=== PATIENT | male | born 1935 | race Caucasian/White ===

== ENCOUNTER 2020-12-24 17:10 | Emergency (ER) | payer OTHER, SELFPAY ==
[2020-12-24] VITALS (7 sets, daily range): BP systolic 123–140; BP diastolic 69–87; PULSE 61–97; RESP 16–27; TEMP 36.6; O2SAT 90–99; BMI 15.2
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
[2020-12-24 18:14] LABS: Basophils % 0.2 %; Eosinophils % 0.3 %; Hematocrit 33.5 % (42.0-52.0); Lymphocytes # 0.8 10^3/uL (0.8-4.8); Lymphocytes % 12.6 %; Mean Corpuscular HGB Conc 32.8 g/dL (30.0-36.0); Mean Corpuscular Hemoglobin 31.6 pg (28.0-34.0); Mean Corpuscular Volume 96.3 fL (80-94); Mean Platelet Volume 9.1 fL (7.4-10.4); Monocytes # 0.5 10^3/uL (0.2-0.9); Neutrophils # 5.25 10^3/uL (1.8-7.7); Neutrophils % 79.6 %; Nucleated Red Blood Cells % 0 %; Platelet Count 146 10^3/cmm (130-400); Red Blood Count 3.48 10^6/uL (4.1-5.3); Red Cell Distribution Width 17.9 % (12.1-15.1); White Blood Count 6.6 10^3/uL (4.0-10.0)
[2020-12-24] MEDS: iodixanol 320 mg/mL 100mL Btl IV (18:20)
[2020-12-24 18:37] LABS: Alanine Aminotransferase 11 U/L (0-41); Albumin Level 3.9 g/dL (3.5-5.2); Alkaline Phosphatase 104 IU/L (40-130); Anion Gap 11.5 (5-19); Aspartate Amino Transferase 21 U/L (0-40); Blood Urea Nitrogen 26 mg/dL (8-23); Calcium 8.4 mg/dL (8.5-10.5); Carbon Dioxide 26 mmol/L (22-29); Chloride 104 mmol/L (98-107); Globulin 3.1 g/dL (1.3-4.6); Glucose 102 mg/dL (65-115); Osmolality Calculated 289 mOsm/kg (285-295); Potassium 4.5 mmol/L (3.5-5.1); Sodium 137 mmol/L (136-145); Total Bilirubin 0.3 mg/dL (0.15-1.2)
[2020-12-24 19:06] LABS: Add Urine Microscopic? YES; Bilirubin Urine Neg (Negative); Blood Urine 2+ (Negative); Glucose Urine UA Norm (Normal); Ketones Urine Negative (Negative); Leukocyte Esterase Urine Negative (Negative); Nitrate Urine Negative (Negative); Protein Urine Neg (Negative); Urine Appearance Clear (CLEAR); Urine Color Yellow (Yellow); Urobilinogen Urine Norm (Negative); pH Urine 5 (5-7)
[2020-12-24 19:07] LABS: Add Urine Culture? No; Bacteria Urine TRACE /hpf; RBC Urine 0-4 /hpf (0-2)
== END 2020-12-24 20:38 | disposition home or self-care (01) ==
PROVIDERS: Emergency Provider Student in an Organized Health Care Education/Training Program; Family Provider Internal Medicine; PCP Internal Medicine
DX: S06.0X0A Concussion without loss of consciousness, initial encounter (principal); W22.10XA Striking against or struck by unspecified automobile airbag, initial encounter; V89.2XXA Person injured in unspecified motor-vehicle accident, traffic, initial encounter
CPT/HCPCS: 70450; 71045; 71260; 72125; 72170; 74177; 80053; 81001; 85025; 99284; Q9967

== ENCOUNTER 2021-01-03 11:01 | Outpatient (CLI) | payer OTHER, SELFPAY ==
--- NOTE | 2021-01-03 11:16 | FL_ITS ---
WS: [id number] Modified barium swallow, 01/03/2021 Clinical Data: Other dysphagia Comparison: None. Fluoroscopy time: 2.1 minutes. Findings: The patient had good bolus propulsion in the oral phase. There was no penetration or aspiration. Ther e is mild weakness in pharyngeal propulsion with piriform sinus pooling. However the pooling did ama [email or web address] FL/FL barium swallow modifd [id number] Impression: Minimal pharyngeal propulsion weakness with piriform sinus pooling which cleare d.
--- NOTE | 2021-01-03 12:12 | CT_ITS ---
WS: [id number] CT HEAD TECHNIQUE: Noncontrast CT of the head obtained from the skullbase to the vertex. CLINICAL INFORMATION: TIA COMPARISON: CT December 24, 2020 DLP: 958.[address] scans at [facility] use at least one of these dose optimization techniques: automat ed exposure control; mA and/or kV adjustment per patient size (includes targeted exams where dose is matched to clinical indication); or iterative reconstruction. FINDINGS: No evidence of intracranial hemorrhage or mass effect. Ventricular system and basal cisterns are das nt. Mild small vessel changes with moderate parenchymal volume loss. No extra-axial fluid collections . No evidence of mass or mass effect. Normal wynn-white differentiation. Paranasal sinuses and mastoid air cells are well aerated. .Normal visualized soft tissues. CT/CT head wo con* [id number] IMPRESSION: 1. No evidence of intracranial hemorrhage or mass effect. 2. Mild small vessel changes. Moderate parenchymal volume loss. 3. No acute intracranial findings.
== END 2021-01-03 11:02 | disposition home or self-care (01) ==
LOC: RAD 11:05
PROVIDERS: Family Provider Internal Medicine; PCP Internal Medicine; Visit Provider Family Medicine
DX: R13.19 Other dysphagia (principal); G45.9 Transient cerebral ischemic attack, unspecified
CPT/HCPCS: 70450; 74230; 92611

== ENCOUNTER 2021-02-05 10:42 | Outpatient (CLI) | payer OTHER, SELFPAY ==
--- NOTE | 2021-02-05 10:51 | USCV_ITS ---
AshleyMikhail andrew Age: 85 Gender: M : 1935 Exam Date: 02/05/2021 11:18 Ordering Phys: Camila Hauser MD Technologist: Exam Location[place] [facility] [place]: TIA Risk Factors: Previous Vascular Surgery: Right Brachial BP: / Left Brachial BP: / Right Left Velocity (cm/s) Spectral Plaque Velocity (cm/s) Spectral Plaque Syst/Diast Broadening Syst/Diast Broadening 56.45/ 11.85 Prox CCA 62.60 / 16.10 49.05/ 10.20 Mid CCA 43.40 / 7.40 48.60/ 13.20 Distal CCA 45.90 / 7.40 33.50/ 15.50 Prox ICA 27.40 / 7.70 51.50/ 17.35 Mid ICA 62.00 / 14.90 57.10/ 14.55 Distal ICA 62.60 / 19.20 69.85 ECA 58.30 1.23 ICA/CCA 1.00 Antegrade Vertebral Antegrade 39.40/ 10.85 cm/s 32.90/ 9.90 cm/s Bi Subclavian Bi 44.05 FINDINGS Comparison: none available. No significant elevation of systolic or diastolic velocities. Waveforms are normal. No significant amount of calcified plaque or intimal thickening identified. CONCLUSIONS Normal carotid doppler ultrasound. Dr. Rossy Carmen DO (Electronically Signed) Final Date: 06 February 2021 09:21 S
== END 2021-02-05 10:43 | disposition home or self-care (01) ==
PROVIDERS: PCP Family Medicine; Visit Provider Family Medicine
DX: G45.9 Transient cerebral ischemic attack, unspecified (principal)
CPT/HCPCS: 93880

== ENCOUNTER 2021-04-15 12:35 | Emergency (ER) | payer OTHER, MEDICARE, SELFPAY ==
[2021-04-15 13:00] VITALS: BP 114/76; PULSE 89; RESP 18; TEMP 36.6; O2SAT 97; BMI 20.3
[2021-04-15 13:31] VITALS: BP 119/89; PULSE 94; RESP 18; O2SAT 99
--- NOTE | 2021-04-15 13:43 | CT_ITS ---
WS: [id number] CT CHEST, ABDOMEN AND PELVIS WITH IV CONTRAST. HISTORY: Weight loss. TECHNIQUE: Contiguous 5 mm axial imaging performed through the chest, abdomen and pelvis with IV cont rast, oral contrast has been provided. Coronal and sagittal reformats chest. Coronal and sagittal ref ormats through the abdomen and pelvis. All CT scans at [facility] use at least one of these d ose optimization techniques: automated exposure control; mA and/or kV adjustment per patient size (in cludes targeted exams where dose is matched to clinical indication); or iterative reconstruction. CONTRAST: Visipaque 320; 75 mL IV. DLP: 1044.45 mGy.cm COMPARISON: 12/24/[address]: Large lobulated soft tissue mass centered in the LEFT upper lobe has increased in size sinc e 12/24/2020. Mass now measures 5.0 x 5.3 cm and extends over a length of 5.1 cm. This mass now exten ds through the superior major fissure. No additional nodules. Chronic emphysema. Small mediastinal an d hilar lymph nodes. No size criteria for adenopathy. Mild atherosclerosis aorta. Normal size pulmona ry artery. No pleural or pericardial effusion. Abdomen CT: Multiple small hypodense lesions within the liver. The largest is along the anterior LEFT lobe measuring 2.7 cm. This is been present on prior studies and may be a cyst. No bile duct dilatat ion. There are a few other scattered hypodensities which are too small to characterize. Normal size s pleen. Cholelithiasis without acute cholecystitis. Moderate atrophy of the pancreas. Normal adrenal g lands. Cysts and parapelvic cyst RIGHT kidney with cortical thinning. Dilatation of the RIGHT renal pelvis a nd RIGHT ureter. Marked dilatation and tortuosity of the ureter. There is a change in caliber and inc reased soft tissue density in the distal RIGHT ureter near the pelvic brim. There is a filling defect within the ureter. Soft tissue mass within the ureter extends over length of 2.5 cm. Ureter distal t o this soft tissue mass is normal. Additional parapelvic cyst LEFT kidney with mild cortical thinning . No obstruction. Moderate atherosclerosis aorta. No ascites. No adenopathy. Pelvic CT: No free fluid. Extensive diverticular disease and constipation. No acute diverticulitis. N o adenopathy. Bones are markedly osteopenic. No osteoblastic or osteolytic bone disease. Extensive laminectomy defe cts with fusion in the lower lumbar spine. CT/CT chest abd pel w con* IMPRESSION: 1. Large mass centered in the LEFT upper lobe has increased in size since 12/24. Lung mass measures 5.0 x 5.3 cm and extends over length of 5.1 cm. Mass now extends through the superior fissure into the LEFT lower lobe. Neoplasm unt il proven otherwise. 2. No mediastinal or hilar adenopathy. 3. Severe RIGHT hydroureteronephrosis secondary to a soft tissue mass in the m id to distal RIGHT ureter extending over a length of 2.5 cm. 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 4. Marked constipation and diverticular disease. 5. Multiple hypodense lesions in the liver. No change since 12/24/2014. 6. Cholelithiasis without acute cholecystitis.
--- NOTE | 2021-04-15 13:43 | CT_ITS ---
WS: [id number] CT NECK WITH CONTRAST HISTORY: Weight loss, history of cancer. TECHNIQUE: Contiguous 5 mm axial images are performed through the neck with intravenous contrast. Sag ittal and coronal reformats are also submitted. All CT scans at [facility] use at least one o f these dose optimization techniques: automated exposure control; mA and/or kV adjustment per patient size (includes targeted exams where dose is matched to clinical indication); or iterative reconstruc tion. CONTRAST: CONTRAST: Visipaque 320; 75 mL IV. DLP: 389.23 mGy.cm COMPARISON: 09/20/2018 Study is significantly limited by motion artifact. Patient swallowed with a malignant the examination . No and the hypopharynx, larynx or subglottic region. Limited evaluation due to motion artifact. No ad enopathy. Thyroid is normal. Extensive anterior cervical fusion hardware from C3 to C6. Osteopenia. On the [employer] localizer there is a lobulated soft tissue mass in the central LEFT lung measuring 4.[address]/CT neck w con* 13923 IMPRESSION: 1. Quality of this examination is limited due to swallowing artifact. 2. No significant mass or adenopathy within the neck. 3. Central LEFT lung mass measures 4.1 x 4.[address] report for ches t, abdomen and pelvis performed on the same day.
--- NOTE | 2021-04-15 13:45 | FL_ITS ---
WS: [id number] ESOPHAGRAM WITH FLUOROSCOPY HISTORY: Difficulty swallowing. Cancer patient. Prior radiation. COMPARISON: None available. FLUOROSCOPY TIME: 0.7 minutes. Esophagus and swallowing function: Limited evaluation of the esophagus with Gastrografin. Patient was able to swallow the Gastrografin mixture without too much difficulty. There is laryngeal penetration but no aspiration. The Gastrografin was swallowed without regurgitation. This study was limited due to patient's condition. FL/FL barium swallow 25569 IMPRESSION: 1. Patient was able to swallow the Gastrografin mixture without difficulty. 2. Laryngeal penetration but no aspiration.
--- NOTE | 2021-04-15 13:49 | ED_ITS ---
HPI - General Adult General: Chief complaint: General Medical Stated complaint: CANT TALK OR EAT Time Seen by Provider: 04/15/21 13:14 History of Present Illness: HPI narrative: Patient is a 85-year-old male with history of throat cancer diagnosed earlier this year who completed radiation treatment in January presenting to the emergency room with worsening dysphagia x3- month. Patient says that he has had progressive dysphagia to the point where he has difficulty swallowing liquids currently. He says that things get stuck in his throat and he vomits is resolved. Patient also has chronic abdominal pain. Patient denies any nausea/vomiting outside of eating, fever/chills, diarrhea, melena/hematochezia, or other issues. She has never had a G-tube placed in the past. Patient wants to schedule care with Dr. Ashby but has been unable to do so in the past few month. Onset: chronic Duration:ongoing Location:home Severity:moderate Review of Systems Narrative: Constitutional: No fever, no chills. HEENT: No vision changes, +dysphagia CV: No chest pain, no palpitations PULM: no cough, no dyspnea. GI: No abdominal pain, no N/V/D. : No dysuria MSKEL: No muscle pain SKIN: No new rashes, no lesions. NEURO: No headache, no focal weakness. HEME: No visible bruises PSYCH: Normal mood Physical Exam Narrative: EXAM NARRATIVE: Head: Atraumatic Eyes: PERRL, conjunctiva without injection ENT: Mucous membrane moist, no oropharyngeal involvement, no tongue protrusion or drooling NECK: Supple, ROM intact, +moderate anterior neck swelling LUNGS: LCTAB, no crackles/rhonchi CV: RRR ABDOMEN: Soft, nontender in all quadrants EXTREMITY: Normal ROM SKIN: No rash or erythema NEURO: Awake and alert, no focal motor deficits PSYCH: Normal mood and affect Course Vital Signs: Vital signs: Vital Signs Temperature 97.9 F 04/15/21 13:00 Pulse Rate 94 04/15/21 15:37 Respiratory Rate 18 04/15/21 13:31 Blood Pressure 117/88 04/15/21 15:37 Pulse Oximetry 98 04/15/21 15:37 MDM - General Adult MDM Narrative: Medical decision making narrative: Patient is a 85-year-old male with history of throat cancer off treatments who presents the emergency room for evaluation of worsening dysphagia. On exam, patient is thin looking male hemodynamically stable, no other focal complaints at this time. Given concerns for progressive dysphagia, I have consulted Dr. Nickerson agreed to see patient in clinic on for evaluation of G-tube placement. In addition, I discussed case with Dr. Ashby who will see patient in clinic on Wednesday. Findings of lung cancer and kidney cancer discussed extensively with patient and his . Patient agrees with follow up with Dr. Ashby to discuss cancer treatment further. Disposition: Discharge. He is given strict return precaution for any concerning complaints. Patient has 2 appointments in the next 3 days. Lab Data: Labs: Lab Results 04/15/21 04/15/21 04/15/21 Range/Units 13:45 13:45 13:45 WBC 6.7 (4.0-10.0) 10^3/ uL RBC 4.28 (4.1-5.3) 10^6/u L Hgb 12.2 (11.7-16.6) g/dL Hct 37.7 L (42.0-52.0) % MCV 88.1 (80-94) fl MCH 28.5 (28.0-34.0) pg MCHC 32.4 (30.0-36.0) g/dL RDW 13.8 (12.1-15.1) % Plt Count 216 (130-400) 10^3/c mm MPV 9.8 (7.4-10.4) fL Neut % (Auto) 70.6 % Lymph % (Auto) 17.4 % Upton % (Auto) 9.9 % Eos % (Auto) 1.2 % Baso % (Auto) 0.6 % Neut # (Auto) 4.69 (1.8-7.7) 10^3/u L Lymph # (Auto) 1.2 (0.8-4.8) 10^3/u L Upton # (Auto) 0.7 (0.2-0.9) 10^3/u L Eos # (Auto) 0.1 (0.0-0.8) 10^3/u L Baso # (Auto) 0.0 (0.0-0.1) 10^3/u L Nucleated RBC % (a uto) 0 % Nucleated RBCs # 0.0 /100WBC PT 14.00 (12.1-14.9) SECO NDS INR 1.05 (0.8-1.2) APTT 38.5 H (23.9-36.7) SECO NDS Sodium 136 (136-145) mmol/L Potassium 4.8 (3.5-5.1) mmol/L Chloride 102 (98-107) mmol/L Carbon Dioxide 25 (22-29) mmol/L Anion Gap 13.8 (5-19) BUN 27 H (8-23) mg/dL Creatinine 1.2 (0.7-1.2) mg/dL GFR Calculation Not Reportable Glucose 92 (65-115) mg/dL Calculated Osmolal ity 287 (285-295) mOsm/k g Calcium 8.6 (8.5-10.5) mg/dL Total Bilirubin 0.4 (0.15-1.2) mg/dL AST 14 (0-40) U/L ALT 8 (0-41) U/L Alkaline Phosphata se 108 (40-130) IU/L Total Protein 6.8 (6.6-8.7) g/dL Albumin 3.8 (3.5-5.2) g/dL Globulin 3.0 (1.3-4.6) g/dL Lipase 43 (13-60) U/L Blood Type Rho(D) Type Antibody Screen 04/15/21 Range/Units 14:07 WBC (4.0-10.0) 10^3/ uL RBC (4.1-5.3) 10^6/u L Hgb (11.7-16.6) g/dL Hct (42.0-52.0) % MCV (80-94) fl MCH (28.0-34.0) pg MCHC (30.0-36.0) g/dL RDW (12.1-15.1) % Plt Count (130-400) 10^3/c mm MPV (7.4-10.4) fL Neut % (Auto) % Lymph % (Auto) % Upton % (Auto) % Eos % (Auto) % Baso % (Auto) % Neut # (Auto) (1.8-7.7) 10^3/u L Lymph # (Auto) (0.8-4.8) 10^3/u L Upton # (Auto) (0.2-0.9) 10^3/u L Eos # (Auto) (0.0-0.8) 10^3/u L Baso # (Auto) (0.0-0.1) 10^3/u L Nucleated RBC % (a uto) % Nucleated RBCs # /100WBC PT (12.1-14.9) SECO NDS INR (0.8-1.2) APTT (23.9-36.7) SECO NDS Sodium (136-145) mmol/L Potassium (3.5-5.1) mmol/L Chloride (98-107) mmol/L Carbon Dioxide (22-29) mmol/L Anion Gap (5-19) BUN (8-23) mg/dL Creatinine (0.7-1.2) mg/dL GFR Calculation Glucose (65-115) mg/dL Calculated Osmolal ity (285-295) mOsm/k g Calcium (8.5-10.5) mg/dL Total Bilirubin (0.15-1.2) mg/dL AST (0-40) U/L ALT (0-41) U/L Alkaline Phosphata se (40-130) IU/L Total Protein (6.6-8.7) g/dL Albumin (3.5-5.2) g/dL Globulin (1.3-4.6) g/dL Lipase (13-60) U/L Blood Type AB Positive Rho(D) Type Positive Antibody Screen Negative Imaging Data^: Other Imaging: Radiologist's impression: [address] [id number] Scan ReportSigned Patient: Mikhail Huerta #: [id number]: [id number]#:[id number]/Sex: 85 / MADM Date: 04/15/21Loc: ERRoom/Bed:Attending Dr: Ordering Provider/Ordering MD: Larisa Arnett MD Date of Service: 04/15/21 Procedure(s): CT neck w con* [id number] Accession Number(s): [id number] Report Number: [id number] WS: [id number] CT NECK WITH CONTRAST HISTORY: Weight loss, history of cancer. TECHNIQUE: Contiguous 5 mm axial images are performed through the neck with intravenous contrast. Sagittal and coronal reformats are also submitted. All CT scans at [facility] use at least one of these dose optimization techniques: automated exposure control; mA and/or kV adjustment per patient size (includes targeted exams where dose is matched to clinical indication); or iterative reconstruction. CONTRAST: CONTRAST: Visipaque 320; 75 mL IV. DLP: 389.23 mGy.cm COMPARISON: 09/20/2018 Study is significantly limited by motion artifact. Patient swallowed with a malignant the examination. No and the hypopharynx, larynx or subglottic region. Limited evaluation due to motion artifact. No adenopathy. Thyroid is normal. Extensive anterior cervical fusion hardware from C3 to C6. Osteopenia. On the cold header localizer there is a lobulated soft tissue mass in the central LEFT lung measuring 4.[address]/CT neck w con* [id number] IMPRESSION: 1. Quality of this examination is limited due to swallowing artifact. 2. No significant mass or adenopathy within the neck. 3. Central LEFT lung mass measures 4.1 x 4.[address] report for chest, abdomen and pelvis performed on the same day. Dictated By:Rossy Carmen DOSigned By:Rossy Carmen DOSigned Date/Time:04/15/21 1501DD/ 1456 [facility] [place] [id number] Scan ReportSigned Patient: Mikhail Huerta #: [id number]: [id number]#:[id number]/Sex: 85 / MADM Date: 04/15/21Loc: ERRoom/Bed:Attending Dr: Ordering Provider/Ordering MD: Larisa Arnett MD Date of Service: 04/15/21 Procedure(s): CT chest abd pel w con* Accession Number(s): [id number] Report Number: [id number] WS: [id number] CT CHEST, ABDOMEN AND PELVIS WITH IV CONTRAST. HISTORY: Weight loss. TECHNIQUE: Contiguous 5 mm axial imaging performed through the chest, abdomen and pelvis with IV contrast, oral contrast has been provided. Coronal and sagittal reformats chest. Coronal and sagittal reformats through the abdomen and pelvis. All CT scans at [facility] use at least one of these dose optimization techniques: automated exposure control; mA and/or kV adjustment per patient size (includes targeted exams where dose is matched to clinical indication); or iterative reconstruction. CONTRAST: Visipaque 320; 75 mL IV. DLP: 1044.45 mGy.cm COMPARISON: 12/24/[address]: Large lobulated soft tissue mass centered in the LEFT upper lobe has increased in size since 12/24/2020. Mass now measures 5.0 x 5.3 cm and extends over a length of 5.1 cm. This mass now extends through the superior major fissure. No additional nodules. Chronic emphysema. Small mediastinal and hilar lymph nodes. No size criteria for adenopathy. Mild atherosclerosis aorta. Normal size pulmonary artery. No pleural or pericardial effusion. Abdomen CT: Multiple small hypodense lesions within the liver. The largest is along the anterior LEFT lobe measuring 2.7 cm. This is been present on prior studies and may be a cyst. No bile duct dilatation. There are a few other scattered hypodensities which are too small to characterize. Normal size spleen. Cholelithiasis without acute cholecystitis. Moderate atrophy of the pancreas. Normal adrenal glands. Cysts and parapelvic cyst RIGHT kidney with cortical thinning. Dilatation of the RIGHT renal pelvis and RIGHT ureter. Marked dilatation and tortuosity of the ureter. There is a change in caliber and increased soft tissue density in the distal RIGHT ureter near the pelvic brim. There is a filling defect within the ureter. Soft tissue mass within the ureter extends over length of 2.5 cm. Ureter distal to this soft tissue mass is normal. Additional parapelvic cyst LEFT kidney with mild cortical thinning. No obstruction. Moderate atherosclerosis aorta. No ascites. No adenopathy. Pelvic CT: No free fluid. Extensive diverticular disease and constipation. No acute diverticulitis. No adenopathy. Bones are markedly osteopenic. No osteoblastic or osteolytic bone disease. Extensive laminectomy defects with fusion in the lower lumbar spine. CT/CT chest abd pel w con* IMPRESSION: 1. Large mass centered in the LEFT upper lobe has increased in size since 12/24/2020. Lung mass measures 5.0 x 5.3 cm and extends over length of 5.1 cm. Mass now extends through the superior fissure into the LEFT lower lobe. Neoplasm until proven otherwise. 2. No mediastinal or hilar adenopathy. 3. Severe RIGHT hydroureteronephrosis secondary to a soft tissue mass in the mid to distal RIGHT ureter extending over a length of 2.5 cm. 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 4. Marked constipation and diverticular disease. 5. Multiple hypodense lesions in the liver. No change since 12/24/2014. 6. Cholelithiasis without acute cholecystitis. Discharge Plan Discharge Patient Disposition: Home Clinical Impression: Dysphagia, Throat cancer Condition: Stable Prescriptions: No Action Unable to Assess RF: 0 Discharge Orders: Discharge ED (Routine); Ordered 04/15/21 Ordered By: Larisa Arnett Referrals: Amor Tesfaye MD [Physician] - 04/17/21 3:25 pm Camila Hauser MD [Primary Care Provider] - Tim Ashby MD [Hospitalist] - 04/18/21 10:00 am Discharge Diet: Advance as tolerated Discharge Activity: Resume usual activity Patient Instructions: Dysphagia Activity Restrictions/Additional Instructions: Our outsole caser will have you follow-up with Dr. Nickerson and Dr. Ashby in the next few days. You would be expected to have a phone call with our outsole caser who will put you on the schedule. You have an appointment with Dr. Nickerson on . Come back to the ED if you have any other concerns or issues. Coding Level of Care Code ED Architecture Internship for Senthil Catherine
[2021-04-15 13:52] LABS: Basophils % 0.6 %; Eosinophils # 0.1 10^3/uL (0.0-0.8); Eosinophils % 1.2 %; Hematocrit 37.7 % (42.0-52.0); Hemoglobin 12.2 g/dL (11.7-16.6); Lymphocytes # 1.2 10^3/uL (0.8-4.8); Lymphocytes % 17.4 %; Mean Corpuscular HGB Conc 32.4 g/dL (30.0-36.0); Mean Corpuscular Hemoglobin 28.5 pg (28.0-34.0); Mean Corpuscular Volume 88.1 fl (80-94); Mean Platelet Volume 9.8 fL (7.4-10.4); Monocytes # 0.7 10^3/uL (0.2-0.9); Monocytes % 9.9 %; Neutrophils # 4.69 10^3/uL (1.8-7.7); Neutrophils % 70.6 %; Nucleated Red Blood Cells % 0 %; Platelet Count 216 10^3/cmm (130-400); Red Blood Count 4.28 10^6/uL (4.1-5.3); Red Cell Distribution Width 13.8 % (12.1-15.1); White Blood Count 6.7 10^3/uL (4.0-10.0)
--- NOTE | 2021-04-15 13:56 | DCPLANNER ---
manager wireless was asked to schedule a follow up appointment for patient with Dr. Bourgeois and Dr. Ashby. manager wireless spoke with Amber with Dr. Ashby, a follow up appointment was scheduled for Wednesday, April 18 at 10:[address] Ashby. manager wireless called [facility], spoke with Mane, a follow up appointment was scheduled for April at 3:25. manager wireless will email Josefa at [facility] to let her know of the referral and appointment. manager wireless also informed the ED physician of the scheduled appointments. manager wireless informed patient of the scheduled appointments.
[2021-04-15 14:18] LABS: INR 1.05 (0.8-1.2)
[2021-04-15 14:19] LABS: Partial Thromboplastin Time 38.5 SECONDS (23.9-36.7)
[2021-04-15 14:23] LABS: Alanine Aminotransferase 8 U/L (0-41); Albumin Level 3.8 g/dL (3.5-5.2); Alkaline Phosphatase 108 IU/L (40-130); Anion Gap 13.8 (5-19); Aspartate Amino Transferase 14 U/L (0-40); Blood Urea Nitrogen 27 mg/dL (8-23); Calcium 8.6 mg/dL (8.5-10.5); Carbon Dioxide 25 mmol/L (22-29); Chloride 102 mmol/L (98-107); Glucose 92 mg/dL (65-115); Lipase 43 U/L (13-60); Osmolality Calculated 287 mOsm/kg (285-295); Potassium 4.8 mmol/L (3.5-5.1); Sodium 136 mmol/L (136-145); Total Bilirubin 0.4 mg/dL (0.15-1.2); Total Protein 6.8 g/dL (6.6-8.7)
[2021-04-15] MEDS: diatrizoate meglumine 120 mL Sol PO (14:35)
[2021-04-15] MEDS: iodixanol 320 mg/mL 100mL Btl IV ×2 (14:51→14:52)
[2021-04-15 15:37] VITALS: BP 117/88; PULSE 94; O2SAT 98
--- NOTE | 2021-04-24 08:18 | DCPLANNER ---
Patient had a follow up appointment scheduled for 04.18.[address] Ashby at [facility] - patient did attend appointment. Patient had a follow up appointment scheduled for 04.17.[address] Tesfaye at [facility] - patient did attend appointment.
== END 2021-04-15 15:35 | disposition home or self-care (01) ==
PROVIDERS: Emergency Provider Emergency Medicine; PCP Family Medicine
DX: R13.10 Dysphagia, unspecified (principal); C14.0 Malignant neoplasm of pharynx, unspecified
CPT/HCPCS: 70491; 71260; 74177; 74220; 80053; 83690; 85025; 85610; 85730; 86850; 86900; 99283; Q9963; Q9967

== ENCOUNTER 2021-04-18 10:05 | Outpatient (CLI) | payer OTHER, MEDICARE, SELFPAY ==
--- NOTE | 2021-04-18 14:38 | ONC CON_ITS ---
Dr. Ashby New Patient Note Patient: Mikhail Huerta Unit #: [id number]: 1935 Dicatated By: Tim Ashby M.D.Date of Visit: Apr 18, 2021 Onc MED New Patient/Consult Referring Physician: Dr. HOLLAND GONGORA JR., Carla Gongora Chief Complaint: Laryngeal cancer/lung mass. History of Present Illness: This is a patient with known history of laryngeal cancer. He also is known to have an enlarging left lung mass. In August [address] Srivastava with complaints of hoarseness and difficulty swallowing. 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 Biopsy showed moderate to severe dysplasia. Neck CT on 09/20/2018 showed no evidence of mass or lymphadenopathy, but chest CT at that time showed a new pulmonary nodule in the left upper lobe measuring 1.6 x 1.4 cm. He was referred to a newspaper delivery counselor for evaluation. Bronchoscopy apparently was nondiagnostic. In the course of an orthopedic procedure in October 2018 he was noted to have abnormal vocal cords. On 12/18/2018 he underwent bronchoscopy, esophagoscopy, and direct laryngoscopy's. 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 PET/CT on 01/07/2019 showed an FDG avid left upper lobe mass measuring 2.3 x 1.8 cm, suspicious for primary lung malignancy. There were no other areas of abnormal uptake. He then underwent definitive radiation to the larynx, completed on 03/24/2019 to a total dose of 6300 cGy administered in 28 fractions. His indicates that sometime following completion of the radiation he developed significant memory loss and cognitive dysfunction. In her words he lost it all , but it did show some gradual recovery. During follow-up there was evidence of continued enlargement of the left upper lobe lung mass. The records indicate that on multiple occasions he had failed to show up for scheduled biopsies. On 04/15/2020 when he presented to the emergency room with difficulty swallowing. He complained that things got stuck in his throat and that he was vomiting up everything he was eating. His evaluation concluded a barium swallow study which interestingly showed that he was able to swallow the Gastrografin mixture without too much difficulty. There was noted to be laryngeal penetration but no aspiration. The Gastrografin was swallowed without regurgitation. His neck CT showed no significant mass or adenopathy. CT scans of the chest, abdomen, and pelvis showed further enlargement of the left upper lobe lung nodule measuring 5.0 x 5.3 x 5.1 cm. There was no mediastinal or hilar adenopathy. There was noted to be severe hydronephrosis secondary to soft tissue mass in the mid to distal right ureter extending over a length of 2.5 cm. Multiple hypodense lesions in the liver were noted to be unchanged compared to her previous study from 12/24/2014. His main complaint is that his throat is plugged up and that he cannot swallow. He claims to regurgitate everything he tries to swallow except water. In his words I need to get this opened up . He claims to have a total weight loss of 130 pounds. By our records he is down 35 pounds since September 2018. He does not have fever or night sweats. He has some mucus sinus drainage and he complains that he does not have a voice. He does not have much cough. His breathing has been okay. He has been having pain in the left lateral chest area and across the lower chest. He does not complain of nausea. He is on medication for acid reflux. He has been having abdominal pain in the left upper quadrant area and in the low mid abdominal area. Bowel function has been adequate. He has urinary frequency and nocturia. For the past 3 weeks he has been having burning with urination and he has had blood in the urine every time he voids. He does not have significant joint or bone pain, but he does complain of having muscle cramps. He also complains that he has numbness all over. He does not complain of headache. He does report being dizzy at times. He has a history of posttraumatic stress disorder, and he has some anxiety and depression. Past Medical History: His medical history consists of anxiety, atrial fibrillation, chronic obstructive pulmonary disease, depression, gastroesophageal reflux disease, laryngeal cancer, memory loss/cognitive dysfunction, peripheral neuropathy, and posttraumatic stress disorder. Past Surgical History: He underwent bronchoscopy, esophagoscopy, and direct laryngoscopy in 2019. His other surgical/procedural history includes bilateral cataract excisions, cervical fusion, left inguinal hernia repair, low back surgery x 2, rotator cuff repair bilaterally, and colonoscopy in 2018. Medications: Boost 1 bottle(s) Liquid Oral b.i.d., Docusate Sodium 2 Capsule (of 100 mg) Oral b.i.d., Donepezil HCl 1 Tablet (of 10 mg) Oral at bedtime, Fluticasone Propionate Suspension Nasal daily, HYDROcodone-Acetaminophen 1 Tablet (of 7.5-325 mg) Oral q 8 hours PRN, Meclizine HCl 0.5 Tablet (of 25 mg) Oral t.i.d., Metoprolol Tartrate 0.5 Tablet (of 100 mg) Oral b.i.d., Pantoprazole Sodium 2 Tablet (of 40 mg) Pack Oral b.i.d., Saline Nasal [place] Solution Nasal daily, traZODone HCl 1 (100 mg) Tablet Oral at bedtime Allergies: Gabapentin, Kenalog, Omeprazole, and Topamax. Social History: Mr. Huerta is and he is retired. He has a history of smoking 1 pack of cigarettes daily, though he quit smoking 46 years ago. He does not drink alcohol. Family History: He reports that both parents of old age, father at age 87 and mother at age 91. He had a total of 9 siblings. One brother is still living and has dementia. The others are , but he does not really know what happened to them. Review Of Symptoms: Constitutional - He has weakness/fatigue, but he is doing some work at home. He has limited oral intake. He has had a total weight loss of 130 lbs. He does not have fever or night sweats. ECOG score is 1, Eyes - No change in vision, ENMT - He has hearing loss. No tinnitus. He has sinus drainage and he complains that his throat is plugged and he cannot swallow. He regurgitates anything he tries to eat or drink other than water, Hematologic/Lymphatic - He has easy bruising, Respiratory - His breathing is okay. He does have some cough with the mucus drainage. He complains that he does not have a voice. No pleuritic pain or hemoptysis, Cardiovascular - He has been having some pain in the left lateral chest area and across his lower chest, Gastrointestinal - He does not complain of nausea. He is on medication for acid reflux. He has abdominal pain in the left upper quadrant area and in the lower abdomen. No diarrhea or constipation. No blood in the stool or black stools, Genitourinary (M) - He has urinary frequency and nocturia. For the past 3 weeks he has been having burning with urination and he has blood in the urine every time he voids, Musculoskeletal - He has no significant joint or bone pain, but recently has been having muscle cramps, Neurologic - No headache. He sometimes has dizziness. He has numbness/tingling all over, Psychiatric - He has anxiety and depression. He is not sleeping well. Vital Signs: Performed on Apr 18, 2021 11:09: 4, 18.30, 1.80 sq.m, 72.00 in, 99 %, 97 /min, 17 /min, 116/73 mm(hg), 97.7 F (LOW), and 134.9 lbs (LOW). Physical Examination: Constitutional - He appears chronically ill, Eyes - Sclerae nonicteric. Conjunctivae clear, ENMT - No lesions noted in the oral cavity, Neck - There is just mild induration in the neck. There is no mass or thyromegaly noted, Hematologic/Lymphatic - No cervical, clavicular, or axillary adenopathy, Respiratory - Lungs sound clear with diminished air movement bilaterally, Cardiovascular - Heart rhythm is irregular. There is no murmur, gallop, or rub noted, Abdomen - Soft. There is significant tenderness in the lower abdomen overlying the symphysis. Liver and spleen are not enlarged. There is no abdominal mass or ascites noted and there is no inguinal adenopathy, Back/Spine - There is no bony tenderness in the spine, Extremities - No edema. Pedal pulses are palpable bilaterally, Integumentary - No rashes. No suspicious skin lesions noted, Neurologic - No focal neurologic deficits noted. Lab/Imaging: Laboratory studies from 04/15/2021 included CBC showing hemoglobin 12.2 g, white blood cell count 6700, and platelet count 216,000. Comprehensive metabolic profile showed borderline renal function with BUN 27 and creatinine 1.2 mg/dL. Bilirubin and liver enzymes were normal. Albumin is in the low normal range at 3.8 g/dL. Problem List: 1. Enlarging left upper lobe lung mass consistent with primary lung neoplasm. 2. CT evidence of right ureteral mass with associated hydronephrosis, consistent with primary urothelial cancer. 3. 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 He completed definitive radiation in March 2019. 4. He has subjective complaints of dysphagia and regurgitation. The cause is uncertain, as there was no supportive evidence on a recent barium swallow study. 5. GERD. 6. COPD. 7. Atrial fibrillation. 8. Degenerative disease of the spine. 9. Memory loss/cognitive dysfunction. 10. Posttraumatic stress disorder. 11. Anxiety and depression. Problems Addressed with this Encounter and Plan: 1. Patient with enlarging left upper lobe lung mass consistent with primary lung neoplasm. Management is likely to be problematic given his other ongoing issues. However, the mass does appear to be accessible by bronchoscopy, and I will arrange for referral to Dr. Aquino, subject to [facility] approval. 2. He has CT evidence of right ureteral mass and associated right hydronephrosis. He is symptomatic with hematuria, and he almost certainly has primary urothelial cancer. I will arrange for referral to Dr. Graham, also subject to [facility] approval. 3. Has a history of having undergone definitive radiation for carcinoma in situ involving both right and left true vocal cords. Radiation was completed in March 2019. During follow-up there has been no evidence of recurrence. He has complaints of difficulty swallowing and regurgitation. The exact cause of this is unclear, as his recent barium swallow study so that he was able to swallow the Gastrografin mixture without difficulty. Nonetheless, he has had significant weight loss, and it still may be appropriate to place a PEG tube for nutritional support. Signed By: Tim Ashby M.D. <<Signature on File>>
== END 2021-04-18 10:06 | disposition home or self-care (01) ==
LOC: ONCMED 10:11
PROVIDERS: PCP Family Medicine; Visit Provider Internal Medicine Medical Oncology
DX: C34.12 Malignant neoplasm of upper lobe, left bronchus or lung (principal); R19.00 Intra-abdominal and pelvic swelling, mass and lump, unspecified site; N13.30 Unspecified hydronephrosis; R13.10 Dysphagia, unspecified; R11.10 Vomiting, unspecified; K21.9 Gastro-esophageal reflux disease without esophagitis; J44.9 Chronic obstructive pulmonary disease, unspecified; I48.91 Unspecified atrial fibrillation; M47.9 Spondylosis, unspecified; R41.3 Other amnesia; F43.10 Post-traumatic stress disorder, unspecified; F41.9 Anxiety disorder, unspecified; F32.9 Major depressive disorder, single episode, unspecified; Z79.899 Other long term (current) drug therapy; Z85.21 Personal history of malignant neoplasm of larynx
CPT/HCPCS: 99205

== ENCOUNTER 2021-04-30 11:01 | Outpatient (CLI) | payer OTHER, SELFPAY ==
--- NOTE | 2021-04-30 11:30 | FL_ITS ---
WS: [id number] Exam: FL barium swallow modifd 53488 Date/Time of Exam: 04/30/2021 11:13 AM Reason For Exam: R13.10 - Dysphagia, unspecified Fluoroscopy time: 4.6 minutes Preliminary survey shows operative fusion of the C-spine from C3 to C6 with anterior plate and screw fixation. The exam was performed in conjunction with the speech therapy service. The patient experienced some difficulty initiating the swallowing process at the level of the orophar ynx with elevation of the tongue to the hard palate. There was pooling into the vallecula involving a ll consistencies of barium mixture foodstuffs. The patient experienced penetration into the laryngeal inlet when ingesting thin liquid barium. The patient demonstrated mild aspiration when ingesting [place] id very mixture foodstuffs. The patient ingested the barium pill without incident. FL/FL barium swallow modifd 72017 IMPRESSION: 1. The patient experienced mild aspiration when ingesting solid barium mixture foodstuffs. 2. Penetration into the laryngeal inlet was noted when the patient ingested thi n liquid barium solutions. 3. Chronic pooling of all consistencies of barium mixture foodstuffs into the v allecula. The patient experienced some difficulty initiating the swallowing pro cess at the level of the oropharynx with elevation of the tongue the hard palat e. A separate report of findings and recommendations will be provided with the [facility] therapy service.
== END 2021-04-30 11:02 | disposition home or self-care (01) ==
LOC: RAD 11:05
PROVIDERS: PCP Family Medicine; Visit Provider Surgery
DX: R13.10 Dysphagia, unspecified (principal)
CPT/HCPCS: 74230; 92611

== ENCOUNTER → 2021-05-16 13:39 | Outpatient (BNVA) | payer OTHER, SELFPAY | PROVIDERS: PCP Family Medicine; Visit Provider Urology | DX: Z20.822 Contact with and (suspected) exposure to COVID-19 (principal); N28.89 Other specified disorders of kidney and ureter | CPT/HCPCS: 81003; 87635 ==

== ENCOUNTER 2021-05-22 21:15 | Observation (INO) | payer OTHER, SELFPAY ==
[2021-05-21 14:10] VITALS: BMI 18.3
[2021-05-22] VITALS (21 sets, daily range): BP systolic 86–130; BP diastolic 53–88; PULSE 96–169; RESP 14–27; TEMP 36.4–37.3; O2SAT 92–100
--- NOTE | 2021-05-22 | SCC_ITS ---
Procedure Done: 1. Cystoscopy with right retrograde ureteropyelogram 2. Right ureteroscopy with biopsy of ureteral mass, no stent 104.5 seconds of fluoroscopic guidance, for a cumulative dose of 11.95 mGy, was provided to Dr. Graham by the radiology department. C-arm images of the abdomen were saved for the patient's permanent record. [facility]
--- NOTE | 2021-05-22 | CT_ITS ---
Guided Bronchoscopy Planning CT images; total exam DLP: 921.16 mGy-cm MTDD
--- NOTE | 2021-05-22 10:50 | SC_ITS ---
WS: [id number] C-arm fluoroscopy for cystoscopy and right ureteroscopy, 05/22/2021 Clinical Data: Right ureteroscopy Comparison: None. Findings: Dr. Graham attempted a right ureteroscopy. SC/C-arm FL for Urology Impression: Right ureteroscopy.
[2021-05-22] MEDS: sodium chloride 0.9% 1,000 ML 30 ML IV (11:24)
--- NOTE | 2021-05-22 12:43 | P.ANESASSM_ITS ---
Pre-Anesthetic Assessment Pre-Anesthetic Assessment: Height/Weight: Height 1.83 m Weight 61.235 kg Temp Pulse Resp BP Pulse Ox 97.5 F L 96 18 123/88 97 05/22/21 11:15 05/22/21 11:15 05/22/21 11:15 05/22/21 11:15 05/22/21 11:15 Preop Diagnosis: Left lung mass Proposed Procedure: Operation Date: 05/22/21 14:00 Proposed Procedures p Cystoscopy 99704 [id number] N28.89(Not Applicable) - Cordell Graham MD s Retrograde Pyelogram(Right) - MD catalina Landry Ureteroscopy biopsy(Right) - MD catalina Landry Ureteral Stent Placement(Right) - Cordell Graham MD s Veran(Not Applicable) - Maris Aquino MD Was Beta Sudhir taken within 24 hours: Yes Was Clonidine taken within 24 hours: N/A Last intake: Intake Last Liquid Date 05/22/21 Last Liquid Time 06:00 Last Solid Date 05/21/21 Last Solid Time 21:00 Social: Social History: No alcohol and No tobacco Exam: Pre-Anes Outpt Exam: alert, oriented x 3 and clear to auscultation bilaterally Additional Exam Findings (including area of procedure): Irregular Airway: Submandibular: WNL Cervical ROM: WNL MP: 2 Dentition: Partials Additional comments: H/O head/neck radiation but good mobility of so ft tissue Pulmonary: Comments: Lung mass CV/HEM: CV/HEM: Afib and HTN : : Chronic renal Insufficiency GI: GI: GERD Musc/skel: Musc/skel: Weakness Anesthetic Plan: ASA status: 3 Anesthesia: General Risk of > 500 ml blood loss (7ml/kg in children): No Meds/Allergies Current Medications: Current Medications Generic Name Dose Route Start Last Admin Trade Name Freq PRN Reason Stop Dose Admin Sodium Chloride 1,000 mls @ 30 ml s/hr 05/22/21 11:00 05/22/21 11:24 Sodium Chloride 0.9% IV 05/23/21 10:59 30 mls/hr .Q24H FRANKY Administration PFSH Anesthesia PFSH: Medical History Hydronephrosis Ureteral mass Surgical History History of bilateral cataract extraction History of hernia surgery 2X History of surgery on wrist Family History Father , AT 86 of unknown cause Mother , AT 85 of unknown cause Social History Smoking and tobacco status: former smoker Alcohol intake: former Marital status: Current occupational status: retired History of recent travel: No Data Anesthesia Cardiac Studies: No Data to Display
--- NOTE | 2021-05-22 14:15 | P.HPUD_ITS ---
Surgery/Procedure H&P Update DATE OF PROCEDURE: May 22, 2021 DATE H&P PERFORMED: 05/15/21 H&P UPDATE INFORMATION: I have reviewed H&P completed within last 30 days, I have examined patient prior to procedure, No changes to prior documentation and H&P is in [facility] EMR on date indicated PREOP DIAGNOSIS: Right ureteral obstruction PLANNED PROCEDURE: Operation Date: 05/22/21 14:00 Proposed Procedures p Cystoscopy 03024 [id number] 51143 N28.89(Not Applicable) - Cordell Graham MD s Retrograde Pyelogram(Right) - MD catalina Landry Ureteroscopy biopsy(Right) - MD catalina Landry Ureteral Stent Placement(Right) - MD catalina Landry Veran(Not Applicable) - Maris Aquino MD
[2021-05-22] MEDS: fentaNYL 50 mcg/mL INJ 2mL IVP (14:17)
--- NOTE | 2021-05-22 14:29 | W.PM.OPSUD ---
Surgery/Procedure H&P Update DATE OF PROCEDURE: May 22, 2021 DATE H&P PERFORMED: 05/19/21 H&P UPDATE INFORMATION: I have reviewed H&P completed within last 30 days, I have examined patient prior to procedure and No changes to prior documentation PREOP DIAGNOSIS: Left lung mass PLANNED PROCEDURE: Bronchoscopy with inspection of the airway, possible endobronchial biopsy, navigational bronchoscopy guided transbronchial biopsy, fine-needle aspiration, endobronchial sound guided transbronchial aspiration of lymph nodes and control of bleeding. Operation Date: 05/22/21 14:00 Proposed Procedures p Cystoscopy 72460 [id number] N28.89(Not Applicable) - Cordell Graham MD s Retrograde Pyelogram(Right) - MD catalina Landry Ureteroscopy biopsy(Right) - MD catalina Landry Ureteral Stent Placement(Right) - MD catalina Landry Veran(Not Applicable) - Maris Aquino MD
[2021-05-22] MEDS: levofloxacin-dextrose 5 % 500 MG/100 ML PREMIX 100 MG IV (14:40)
--- NOTE | 2021-05-22 15:07 | PC.NURSE ---
omnipaque 300 mgI/ml lot#[id number] exp [id number] 10ml right ureter
--- NOTE | 2021-05-22 15:41 | PM.OP ---
Operative Report Date of procedure: May 22, 2021 Pre-op Diagnosis: Right ureteral mass Post-op Diagnosis: 1. 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 Tight ureteral obstruction impassable with guidewire Procedure Done: 1. Cystoscopy with right retrograde ureteropyelogram 2. Right ureteroscopy with biopsy of ureteral mass, no stent Implants: None Specimens removed/disposition: 3 small biopsies of the suspicious mucosa identified at the distal end of the mass Pathology: Ureteral biopsiesX3 Surgeon: Gladys Anesthesia: General Estimated blood loss: Minimal Urine output: Not measured Complications: None. Findings: 1. Tight ureteral obstruction with inability to visualize the ureter proximal to the right ureteral mass and also inability to advance a guidewire. 2. Suspicious mucosa with papillary changes at the distal end of the area of the right ureteral mass seen on CT scan. Could not pass anything through the true lumen. 3 small biopsies obtained with ureteral biopsy forceps Disposition: other (Turned over to Dr. Aquino for pulmonary portion) Brief History: Mr. Huerta is a very pleasant 85-year-old white male who was recently referred to ne for evaluation of right ureteral obstruction. 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 There appeared to be a soft tissue mass just distal to the area where the bifurcated ureter joined together. The ureter distal to that appeared to be normal. He was admitted for cystoscopy, retrograde, ureteroscopy, biopsy and possible stent. Dr. Aquino the market asset protection manager was to follow with bronchoscopy. Procedure: After routine preoperative evaluation examination and obtaining of informed consent he was taken to the operating suite on 05/22/2021 where general anesthesia was administered without difficulty after appropriate timeout was performed, SCDs confirmed to be functioning, preoperative antibiotics administered, beta-amada protocol confirmed. Prepped and draped in usual sterile fashion in dorsolithotomy position paying careful attention to avoiding pressure points. 21 Latvian cystoscope with 30 degree lens was easily advanced into the bladder and the bladder was carefully inspected with both 30 and 70 degree lenses. Prostate was mildly enlarged. Bladder was otherwise normal. There was some typical trabeculation cellule formation but no papillary lesions. Orifices were normal. An 8 Latvian cone-tip catheter was intubated to the right ureteral orifice for a right retrograde ureteropyelogram which showed only a very small segment of the right distal ureter filling with contrast with a blunt cut off approximately 2 cm above the ureteral orifice. No contrast could be forced proximal to that point. A flexible tip guidewire was then advanced up the right ureter but only to that same spot and could not be manipulated. An open-ended ureteral catheter was advanced over the guidewire with the same result. A zip wire was then attempted to be passed through the open ureteral catheter but with the same result. A 7 Latvian offset semirigid ureteroscope was then advanced up the right ureter to effectively the same point and the true lumen could not be clearly identified beyond that point but there was notable difference in the mucosa with papillary changes suspicious for TCCA. Biopsy forceps were then utilized for 3 biopsies of this suspicious mucosa. There was minimal bleeding. At this point the procedure was completed simply because no further access to the ureter above the obstructive mass could be obtained as described above. The bladder was drained with an 18 Latvian Crisostomo catheter. He tolerated procedure well without complications and was turned over to Dr. Aquino and his staff for his scheduled procedure.
[2021-05-22] MEDS: lidocaine 1% INJ 20 mL XX (16:00)
--- NOTE | 2021-05-22 16:44 | SUR.OPER ---
Mass noted outside of airway. Ultrasound guided fine needle aspiration of left lung mass performed using sterile technique per Dr. Aquino. Left underarm area prepped with chloraprep, draped with sterile drapes, and mass aspirated with 18 gauge needle. Sample placed in formalin.
--- NOTE | 2021-05-22 17:45 | PM.OP ---
Operative Report Date of procedure: May 22, 2021 Pre-op Diagnosis: Left lung mass Post-op diagnosis: same Brief History: This is an 85-year-old gentleman with left upper lobe lung mass coming in for bronchoscopic evaluation. Procedure: Name of the procedure: Bronchoscopy with inspection of the airway, navigational bronchoscopy guided fine needle aspiration of left upper lobe lung mass, endobronchial ultrasound-guided transbronchial needle aspiration of lymph nodes and control of bleeding. Indication: Left upper lobe lung mass Anesthesia: General anesthesia. Local anesthesia: The vocal cords, trachea, kofi in the right and left mainstem bronchi were anesthetized with 1% lidocaine, 7 mL. Description of the procedure: The procedure was explained to the patient and the consent was obtained. The patient was brought to the OR. The patient underwent laryngeal mask airway placement for general anesthesia for the urologic procedure. Following induction of general anesthesia, the bronchoscope was advanced through the LMA. The vocal cords are normal. The vocal cords were anesthetized 1% lidocaine, 3 mL. The upper and lower trachea appeared to normal. The kofi was sharp. The kofi, the right and left mainstem bronchi are anesthetized with 1% lidocaine. In a systematic manner bilateral bronchial tree was then examined. The bronchoscope was advanced into the left mainstem bronchus. The left upper lobe, lingula and left lower lobe bronchi were examined up to the third subsegmental level and no abnormalities were identified. The bronchoscope was then introduced into the right mainstem bronchus. The right upper lobe, right middle lobe and right lower lobe bronchi were examined up to the third subsegmental level and no abnormalities were identified. There was mucus throughout the airways. Using navigational bronchoscopy fine-needle aspiration of the left upper lobe lung mass was performed. Multiple samples were obtained. The endobronchial ultrasound was introduced through the ET tube. Mediastinal and hilar lymphadenopathy was identified with the ultrasound. The fine-needle aspiration was performed from station seven and 10 L. Samples: 1. Navigational bronchoscopy guided fine-needle aspiration was sent for histopathology. 2. The transbronchial needle aspiration of the aforementioned lymph node groups were sent for histopathology. Complications: There was no immediate complications. Chest x-ray: Pending
--- NOTE | 2021-05-22 17:53 | XRR_ITS ---
PROCEDURE INFORMATION: Exam: XR Chest Exam date and time: 05/22/2021 5:53 PM Age: 85 years old Clinical indication: Shortness of breath; Prior surgery; Surgery date: Post-operative (0-2 days); Surgery type: Bronchoscopy on 05/22/2021. ; Patient HX: SOB. Onset of afib with rvr while in or recovery S/P bronchoscopy and cystoscopy on . ; Additional info: Bronch/veran/ebus, pacu TECHNIQUE: Imaging protocol: XR of the chest. Views: 1 view. COMPARISON: CT chest abd pel w con* 04/15/2021 2:39 PM FINDINGS: Lungs: 6 cm left upper lobe lung mass. The lungs are hyperinflated, consistent with COPD. No consolidative pulmonary infiltrate noted. Pleural spaces: No postprocedure pneumothorax demonstrated. No pleural effusion demonstrated. Heart/Mediastinum: No cardiomegaly. Bones/joints: Degenerative spine changes are noted. XR/XR chest 1V portable [id number] IMPRESSION: 1. 6 cm left upper lobe lung mass. 2. The lungs are hyperinflated, consistent with COPD. No consolidative pulmonary infiltrate noted. 3. No postprocedure pneumothorax demonstrated. Radiation Dose CTDIVOL = (mGy): DLP = (mGy-cm)
[2021-05-22] MEDS: phenazopyridine 100 mg Tablet 200 MG PO (19:10)
--- NOTE | 2021-05-22 19:11 | PM.MISC ---
Miscellaneous Note Purpose of Documentation: Update changing care plan Note: Did well through the surgery. Postoperative assessment showed rapid ventricular response to his chronic atrial fibrillation. There was enough concern regarding his overall debilitated state that discharge home would be potentially risky given that finding and therefore request for observation admission was made. Hospitalist service has been consulted for medical management. Anticipate discharge home tomorrow. Reviewed with his . Patient also has a history of PTSD and has a lot of difficulty in hospitals without his present. She has been given permission to spend the night to help facilitate his behavioral comfort and avoid confrontational combative behavior that he has demonstrated in the past.
--- NOTE | 2021-05-22 19:14 | ANE.PACU2 ---
Inpatient post-anesthesia follow up: Airway intact: Yes Vital signs: Temperature 97.7 F Pulse Rate 141 Respiratory Rate 16 Blood Pressure 96/53 Pulse Oximetry 94 Oxygen Delivery Me thod Nasal Cannula Oxygen Flow Rate 4 Fraction of Inspir ed Oxygen Hydration adequate: Yes Nausea and vomiting: No Pain level: 3 Mental status: Altered (Post op delirium) Additional Comments: Dickson/DELROY, consulted Hospitalist for admit
--- NOTE | 2021-05-22 20:19 | SUR.PHASEI ---
PT C/O PAIN FROM CATHETER
--- NOTE | 2021-05-22 20:21 | SUR.PHASEI ---
PT HAS LOOSE MOLAR, R. LOWER
[2021-05-22 20:37] LABS: Basophils % 0.1 %; Eosinophils % 0.1 %; Hematocrit 37.3 % (42.0-52.0); Hemoglobin 11.7 g/dL (11.7-16.6); Lymphocytes # 0.3 10^3/uL (0.8-4.8); Mean Corpuscular HGB Conc 31.4 g/dL (30.0-36.0); Mean Corpuscular Hemoglobin 28.1 pg (28.0-34.0); Mean Corpuscular Volume 89.7 fl (80-94); Mean Platelet Volume 10.2 fL (7.4-10.4); Monocytes # 0.1 10^3/uL (0.2-0.9); Monocytes % 0.9 %; Neutrophils # 8.35 10^3/uL (1.8-7.7); Neutrophils % 95.4 %; Nucleated Red Blood Cells % 0 %; Platelet Count 188 10^3/cmm (130-400); Red Blood Count 4.16 10^6/uL (4.1-5.3); Red Cell Distribution Width 13.9 % (12.1-15.1); White Blood Count 8.8 10^3/uL (4.0-10.0)
--- NOTE | 2021-05-22 21:32 | PC.NURSE ---
Admit Note Patient admitted to CSU room 112-2 from PACU via stretcher. Covering service notified. Patient presents with afib with rvr. Heart rate 153 on admission currently 100 at this time. Med rec completed. Informed Dr Knapp of patient's arrival. Doctor informed this RN that Dr Ellsworth would see this patient for further orders. Orders reviewed & will continue to monitor. Patient and/or pharmaceutical sales representative oriented to environment, equipment, and informed of the following as found in the admission booklet: patient rights & responsibilities, visitor policy, hand and respiratory hygiene practice. Other education includes: home medications and muro catheter . Patient and both verbalized understanding.
--- NOTE | 2021-05-22 22:03 | P.CONIM_ITS ---
Providers/Reason For Consult Consulting Physician/Specialty*: Sarah Beth Ellsworth MD/Hospitalist Reason for Consult*: A fib with RVR Attending Physician: Cordell Graham MD Primary Care Provider: Camila Hauser MD History of Present Illness History of Present Illness Mikhail Huerta is a 85 year old male noted to have left upper lung mass in 04/2021 and also right ureteral mass suspicious for TCCA. He underwent scheduled cystoscopy with right retrograde ureteropyelogram with biopsy of mass and bronchoscopy with FNA of lung mass and mediastinal LAD. In recovery room, patient was noted to develop A fib with RVR and therefore discharge was deferred and he is instead admitted to the hospital for observation. Peak HR noted at 169, with associated hypotension BP 86/70 . By the time of my assessment in CSU, HR is currently at 107 bpm, BP 110/72. patient denies any current chest pain, dyspnea, palpitations. He has missed his daily dose of metoprolol XL 50mg BID today. Per records review patient has a PMH of A fib, not currently on any anticoagulation. He denies any current symptoms except discomfort due to Crisostomo catheter. There is noted to be hematuria without current blood clots. Review of Systems General: Reports: 10 or more systems reviewed and unremarkable except in HPI and below Const: Denies: fever(s), chills or body aches Eyes: Denies: change in vision, blurry vision or photophobia ENMT: Reports: hoarseness; Denies: throat pain, enlarged tonsils, odynophagia or nasal congestion Card: Denies: chest pain, palpitations, irregular heart rhythm, edema, swelling of feet/ankles, lightheadedness, pre-syncope, dyspnea on exertion or orthopnea Resp: Denies: dyspnea, productive cough, non-productive cough, wheezing, stridor, pain on inspiration, change in phlegm color, hemoptysis or chest congestion GI: Denies: abdominal pain, nausea, vomiting, hematemesis, coffee ground emesis, dysphagia, heartburn, diarrhea, constipation, GI cramping, change in stool character, hematochezia or melena : Denies: flank pain, dysuria, urinary frequency, urinary urgency, urinary hesitancy or hematuria Musc: Denies: neck pain, back pain, extremity pain, joint swelling, joint warmth or deformity Neuro: Denies: headache(s), numbness in extremities, weakness in extremities, sensory changes, difficulty walking, frequent falls, dizziness, vertigo, behavioral changes, Slurred speech present or seizure-like activity Psych: Denies: anxiety, depression, suicidal ideation or homicidal ideation Endo: Denies: polyuria, polydipsia, tired all the time, cold intolerance or hot flashes Parth/Lymph: Denies: easy bruising or easy bleeding Meds/Allergies Home Medications and Allergies Home Medications Medication Instructions Recorded Confirmed Last Taken Type amitriptyline 25 mg tablet 25 mg PO BEDTIME 04/24/21 05/22/21 05/21/21 22:00 History donepezil 10 mg tablet 10 mg PO BEDTIME 04/24/21 05/22/21 05/21/21 22:00 History fluticasone propionate 50 1 spray INTRANASAL DAILY 04/24/21 05/22/21 05/21/21 History mcg/actuation nasal spray,suspension metoprolol succinate 100 mg 50 mg PO BID 04/24/21 05/22/21 05/21/21 22:00 History tablet,extended release 24 hr trazodone 100 mg tablet 100 mg PO BEDTIME 04/24/21 05/22/21 05/21/21 22:00 History meclizine 25 mg tablet 12.5 mg PO TID tab 05/19/21 05/22/21 05/21/21 22:00 History pantoprazole 40 mg tablet,delayed 40 mg PO BID tab 05/19/21 05/22/21 05/21/21 22:00 History release hydrocodone-acetaminophen 2 tab PO Q8H PRN 05/22/21 05/22/21 05/21/21 22:00 History Allergies Allergy/AdvReac Type Severity Reaction Status Date / Time No Known Allergies Allergy Verified 05/21/21 14:07 PFSH Acute PFSH: Medical History Hydronephrosis Ureteral mass Surgical History History of bilateral cataract extraction History of hernia surgery 2X History of surgery on wrist Family History Father , AT 86 of unknown cause Mother , AT 85 of unknown cause Social History Smoking and tobacco status: former smoker Alcohol intake: former Marital status: Current occupational status: retired History of recent travel: No Vitals/I&O/Wt Last Vital Signs Temp 98 F 05/22/21 19:35 Pulse 114 H 05/22/21 20:15 Resp 16 05/22/21 20:15 BP 91/70 05/22/21 20:15 Pulse Ox 100 05/22/21 20:15 05/22/21 05/22/21 05/22/21 06:59 14:59 22:59 Intake Total 700 / 700 Output Total 5 / Balance 695 / 695 Weight last 48 hrs Weight 61.235 kg Physical Exam Narrative: EXAM NARRATIVE: General: No acute distress, AO x3 HEENT: PERRLA, pupils bilaterally equal and reactive, pallors not present Chest: Normal vesicular breath sounds, no added sounds, equal good air entry bilaterally CVS: S1-S2 regular, no murmurs, no tachycardia, no gallops, no rubs Abdomen: Soft, nontender, no organomegaly, bowel sounds present Neuro: No focal deficits, B/L LE with muscular atrophy, usual per , moves all extremities in bed. Urinary Catheter Management^: Crisostomo: Cath Placed During This Visit: yes Urinary Catheter Date of Insertion: 05/22/21 Urinary Catheter Time of Insertion: 15:45 A&P Assessment and plan (1) Atrial fibrillation: A fib with RVR perioperatively likely related to missing Beta blockers today and stress of surgery Currently HR better controlled, between 100-110 mmhg, hypotension resolved once HR under control Resume home dose of metoprolol 50mg BID starting now. Plan to monitor on telemetry overnight, further orders based ib response to po metoprolol. Stat 12 lead EKG No current c/o chest pain, palpitation or dyspnea. CXR taken post procedure, requested radiology read to r/o small left pneumothorax. Currently on 2lpm supplemental 02. clinically euvolemic. Status: Acute Consult Attestations Medical Necessity Statement: observation on telemetry for above care, per admitting Coding Level of Care Code Acute Pipe Smoking Machine Operator for [facility] Diagnoses Atrial fibrillation I48.91
[2021-05-22] MEDS: metoprolol succinate ER (24 HR) 50 mg Tablet PO (22:14)
[2021-05-22] MEDS: trazodone 100 mg Tablet PO (22:14)
[2021-05-22] MEDS: meclizine 25 mg tablet PO (22:15)
[2021-05-22 22:19] LABS: Anion Gap 17.5 (5-19); Blood Urea Nitrogen 15 mg/dL (8-23); Calcium 8.7 mg/dL (8.5-10.5); Carbon Dioxide 20 mmol/L (22-29); Chloride 102 mmol/L (98-107); Glucose 167 mg/dL (65-115); NT Pro B Type Natriuretic Pept 2150 pg/mL (0-450); Osmolality Calculated 285 mOsm/kg (285-295); Potassium 4.5 mmol/L (3.5-5.1); Sodium 135 mmol/L (136-145)
[2021-05-22 22:30] LABS: INR 1.08 (0.8-1.2)
--- NOTE | 2021-05-22 22:56 | ECG_ITS ---
[facility] Test Date: 2021-05-22 Pat Name: Mikhail Huerta Department: Room: 112 Gender: Male Personnel Placement Specialist: : [id number] Requested By: Sarah Beth Ellsworth Order Number: [id number] Blanche MD: Bi Beckford M.D. Measurements Intervals [place] Rate: 97 P: AL: QRS: -4 QRSD: 77 T: 84 QT: 369 QTc: 469 Interpretive Statements ATRIAL FIBRILLATION NONSPECIFIC T-WAVE ABNORMALITY ABNORMAL RHYTHM ECG Compared to ECG 08/25/2018 10:02:07 T-wave abnormality now present Electronically Signed On 05-23-2021 22:46:11 CDT by Bi Beckford M.D. [id number]
[2021-05-23] VITALS (19 sets, daily range): BP systolic 88–105; BP diastolic 53–70; PULSE 79–102; RESP 18; TEMP 36–36.7; O2SAT 90–99
--- NOTE | 2021-05-23 03:05 | PC.NURSE ---
Shift Note Frequent safety and comfort rounds continue. Orders and/or nursing care completed as indicated. Patient monitored for response to intervention and treatment(s). Education provided includes medications with side effects, fall safety, muro with muro care, S/S to report. Patient and/or civil rights representative verbalized understanding of education, patient needed repeated education due to confusion with hx dementia. Muro patient and draining with hematuria without blood clots. No complaints of pain with irritation of muor catheter. Will continue to monitor.
--- NOTE | 2021-05-23 07:30 | PC.NURSE ---
Pt is awake oriented to place and person. Denies any pain. He was asking me when to take out his Crisostomo catheter and when he can go home. HR- ranges from 80s to 90s. BP-102/63, 97% on room air. Madalyn at bedside.
[2021-05-23] MEDS: donepezil 5 MG Tablet 10 MG PO (09:49)
[2021-05-23] MEDS: meclizine 25 mg tablet PO (09:49)
[2021-05-23] MEDS: amitriptyline 25 mg Tablet PO (09:49)
[2021-05-23] MEDS: metoprolol succinate ER (24 HR) 50 mg Tablet PO (09:49)
[2021-05-23] MEDS: pantoprazole DR 40 mg Tablet PO (09:49)
--- NOTE | 2021-05-23 11:28 | PM.PN ---
Subjective Subjective: Interval history: Overnight patient has remained stable. Blood pressure and heart rate has remained stable. Today morning examination with at bedside. No new complaints. Crisostomo removed early in the morning today. Patient has passed urine as per the nurse post Crisostomo removal. Vitals/I&O/Wt Last Vital Signs Temp 97.9 F 05/23/21 10:16 Pulse 89 05/23/21 10:16 Resp 16 05/22/21 20:15 BP 105/64 05/23/21 10:16 Pulse Ox 97 05/23/21 10:16 05/22/21 05/23/21 05/23/21 22:59 06:59 14:59 Intake Total 700 / 700 238 / 938 354 / 354 Output Total 455 / 455 600 / 1055 380 / 380 Balance 245 / 245 -362 / -117 -26 / -26 Weight last 48 hrs Weight 61.235 kg Physical Exam Narrative: EXAM NARRATIVE: General: No acute distress, AO x 2-3, mildly confused HEENT: PERRLA, pupils bilaterally equal and reactive, pallors not present Chest: Bilateral bronchial breath sounds, occasional coarse crackles present, equal good air entry bilaterally CVS: S1-S2 irregularly irregular, tachycardia, no gallops, no rubs Abdomen: Soft, nontender, no organomegaly, bowel sounds present Neuro: No focal deficits, B/L LE with muscular atrophy, usual per , moves all extremities in bed. Urinary Catheter Management^: Crisostomo: Cath Placed During This Visit: yes, but has since been removed by the nurse Reason for Continuing Indwelling Catheter: Decision to DC Catheter Urinary Catheter Date of Insertion: 05/22/21 Urinary Catheter Time of Insertion: 15:45 Date Urinary Catheter Removed: 05/23/21 Time Urinary Catheter Discontinued: 08:30 Data : 05/22/21 20:18 05/22/21 20:17 A&P Assessment and plan (1) Atrial fibrillation: A fib with RVR perioperatively likely related to missing Beta blockers today and stress of surgery Rate controlled now. Continue with home dose of metoprolol 50 mg twice daily. Blood pressures stable. Patient is clinically euvolemic. Can discharge from medical point of view on home meds. I will not change any home meds for now. Will advise patient to follow-up with a primary care provider within next 7 to 10 days. Status: Acute Attestations Medical Necessity Statement*: As per primary team Time Spent in Patient Care: Greater than 35 minutes (>than 50% of time spent in counselling and/or direct pt care on unit). Coding Level of Care Code Acute Mechanical Integrity Specialist for [facility] Diagnoses Atrial fibrillation I48.91
--- NOTE | 2021-05-23 12:33 | PC.NURSE ---
Discharge to home Instructed pt and to have a fall prevention for safety. Madalyn stated they have walker and wheelchair. Instructed pt and to rise up slowly from bed and sit for awhile before standing up to prevent from dizziness, to call 911 right away for any worsening of symptoms of shortness of breath, chest pain or discomfort or rapid heart rate. Educated pt on importance of drinking more fluids for hydration, to limit caffeine intake and to call 911 right away for any worsening symptoms of Afib. Pt and verbalizes understanding. stated that pt has an upcoming appointment on [facility].10 at the [facility]. Asked if she has any help at home, she stated she has a daughter that is capable to help them. Pt and are capable to teach back on what meds pt is taking. stated she has BP cuff to measure HR as well. stated she will call ready transportation for their ride.
--- NOTE | 2021-05-23 12:44 | PC.CHAP ---
Pastoral Care Encounter/Spiritual Assessment Type of Contact [] Declined leather dresser visit [] Patient/Family/Request visit [] Outpatient visit [] Follow-up visit [] Physician referral [] Code/Alert [xx] Routine visit [] Staff referral [] Actively dying [] Patient sleeping [] Family support [] [] Out of room [] Palliative care [] [] Receiving care in room [] Pre-surgical visit [] Trauma [] Long length of stay [] ICU visit [] Other: Relational/Emotional Strength [xx] Patient feels connected with others/family/visitors/staff [] Distress [] Loneliness/isolation [] Abandonment Spirituality of Patient [xx] Person of Pauline [] Attends Cheondoism of their Pauline [xx] Believes in Prayer [] Reads Bible or Methodist materials [] There are Spiritual issues to be addressed Audiovisual Tech Interventions [] Prayer [xx] Active listening [xx] Non-anxious presence [] Spiritual/emotional support [] Crisis/trauma care [] Spiritual counseling [] Bereavement support [] Provided bereavement packet [] Provided Bible/devotional materials [] Provided toy/stuffed animal, coloring book to patient or family member [] Provided Communion [] Anointing/Jarbidge [] Salvation [xx] Completed spiritual assessment [] Other: Impact on Illness or Injury [] Angry [] Fearful [] Anxious [] Often cries [] Exhaustion [] Unable to work [] Unable to attend jehovah's witness [] Unable to walk/stand [] Unable to read [] Unable to drive [] Unable to eat/drink [] Unable to sleep [] Unable to be with family [] Patient intubated [] Other: Summary was present. Conversation short and no prayer offered at that time because patient received a phone call from his daughter which was far more important at the time. Patient may be discharged today per 's statement. Time spent with patient 3 minutes
--- NOTE | 2021-06-02 15:15 | P.DS_ITS ---
Discharge Providers Date of Admission: 05/22/21 21:15 Date of Discharge: 05/23/2021 Attending Provider at Admission: Cordell Graham MD Attending Provider at Discharge: Cordell Graham MD Primary Care Provider: Camila Hauser MD Diagnoses at Discharge Discharge Diagnosis (1) Atrial fibrillation: Status: Acute Reason for Visit Reason for Visit: cytoscopy Hospital Course Hospital Course The patient is a debilitated 85-year-old white male with dementia who was dis covered recently to have an obstructed right ureter of unclear etiology. There appeared to be a soft tissue density suspicious for neoplastic process and he was admitted for cystoscopy, retrograde, ureteroscopy, possible biopsy and stent. Intraoperative findings included evidence of an obstructive papillary lesion and biopsy was conducted. Plan was to send him home postoperatively but he developed rapid ventricular response to his chronic atrial fibrillation and for that reason he was admitted overnight for observation. Hospitalist service was consulted for further assessment and management and overall the patient did well and was capable to be discharged the following day. Crisostomo catheter was removed. Discharged at baseline condition. Physical Exam Const: COMMON NORMALS: no acute distress, alert and well nourished GENERAL APPEARANCE: well kempt and well developed OTHER: Frail-appearing HENMT: COMMON NORMALS: normocephalic and atraumatic HEAD & SCALP: normocephalic and atraumatic Eye: COMMON NORMALS: no scleral icterus Neck/C-Spine: COMMON NORMALS: full ROM Resp: COMMON NORMALS: normal respiratory effort EFFORT & INSPECTION: No labored and No Actively coughing GI: COMMON NORMALS: Soft to palpation and no masses PALPATION: Yes Soft to palpation and No Tenderness to palpation present (GI) Neuro: SENSORIUM/ORIENTATION: Yes alert Psych: APPEARANCE: Yes grossly normal and Yes well kempt ATTITUDE: Yes calm Skin: COMMON NORMALS: no jaundice Urinary Catheter Management^: Crisostomo: Cath Placed During This Visit: yes, but has since been removed by the nurse Reason for Continuing Indwelling Catheter: Decision to DC Catheter Urinary Catheter Date of Insertion: 05/22/21 Urinary Catheter Time of Insertion: 15:45 Date Urinary Catheter Removed: 05/23/21 Time Urinary Catheter Discontinued: 08:30 Discharge Data Data Completed and Pending: Completed Studies During Hospitalization Category Date Time Status CT guided broncho scopy 80776 Routin e Cat Scan 05/22/21 11:55 Completed XR chest 1V carl ble [id number] Routine Exams 05/22/21 17:53 Completed Cytology [PTH] Ro utine Pth 05/22/21 16:18 Completed Cytology [PTH] Ro utine Pth 05/22/21 16:57 Completed Pathology: Surgic al [PTH] Routine Pth 05/22/21 17:50 Completed Vitals: Last Vital Signs Temp 98.1 F 05/23/21 12:38 Pulse 93 05/23/21 12:38 Resp 18 05/23/21 12:38 BP 100/65 05/23/21 12:38 Pulse Ox 97 05/23/21 12:38 Discharge Plan Discharge Patient Disposition: Home Condition: Stable Prescriptions: Continued fluticasone propionate 50 mcg/actuation spray,suspension 1 spray intranasal DAILY RF: 0 amitriptyline 25 mg tablet 25 mg PO BEDTIME RF: 0 donepezil 10 mg tablet 10 mg PO BEDTIME RF: 0 metoprolol succinate 100 mg tablet extended release 24 hr 50 mg PO BID RF: 0 trazodone 100 mg tablet 100 mg PO BEDTIME RF: 0 meclizine 25 mg tablet 12.5 mg PO TID RF: 0 pantoprazole 40 mg tablet,delayed release (DR/EC) 40 mg PO BID RF: 0 hydrocodone-acetaminophen 7.5-325 mg Tablet 2 tab PO Q8H PRN (Reason: Pain) RF: 0 No Action docusate sodium 100 mg capsule 200 mg PO BID RF: 0 Discharge Orders: Discharge Order (Routine); Ordered 05/23/21 Ordered By: Cordell Graham Referrals: Cordell Graham MD [Physician] - 05/30/21 11:00 am (Follow-up with Dr. Graham on Wednesday at 11 am for Pathology check. If you have any more concerns or questions or you need to change the schedule, to call his clinic. ) Camila Hauser MD [Primary Care Provider] - (You need to follow up with your PCP at the [facility] in as scheduled. If you have any concerns and need to reschedule please call their clinic.) Discharge Diet: Advance as tolerated Discharge Activity: Increase activity as tolerated Patient Instructions: A-fib (Atrial Fibrillation) (DC), Fall Prevention for Older Adults (DC) Activity Restrictions/Additional Instructions: Urology instructions: 1. The findings intraoperatively confirmed what was seen on the CT scan with evidence of an obstructing mass in the distal ureter on the right. The mass could not be fully identified due to the obstruction and the inability to pass the scope all the way into the depth of the mass but there was distinctly abnormal lining of the ureter at that level as expected and this area was biopsied. 2. The biopsy should be back sometime next week and we will plan on a follow-up at that time. 3. It is likely that he will continue to have some blood in his urine. 4. 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 Sometimes the biopsies which are very small based on the instruments required are not conclusive. 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 Please follow-up with your primary care provider within next 1 week Discharge Attestations Time Spent in Discharge Care*: less than 30 min Quality Metrics Clinical Quality Measures During this hospital stay, did patient experience: None Coding Level of Care Code Acute [facility] CLAUS note Diagnoses Atrial fibrillation I48.91
== END 2021-05-23 12:43 | disposition home or self-care (01) ==
PROVIDERS: Anesthesiology; Internal Medicine Critical Care Medicine; Admitting Provider Urology; PCP Family Medicine; Visit Provider Urology
PROC: 0TJB8ZZ Inspection of Bladder, Via Natural or Artificial Opening Endoscopic (ICD-10-PCS; CPT 52000; principal; 2021-05-22 14:00)
PROC: (CPT 74420; 2021-05-22 14:00)
PROC: 0TJ98ZZ Inspection of Ureter, Via Natural or Artificial Opening Endoscopic (ICD-10-PCS; CPT 52351; 2021-05-22 14:00)
PROC: 0BJ08ZZ Inspection of Tracheobronchial Tree, Via Natural or Artificial Opening Endoscopic (ICD-10-PCS; CPT 31622; 2021-05-22 14:00)
PROC: 0BJ08ZZ Inspection of Tracheobronchial Tree, Via Natural or Artificial Opening Endoscopic (ICD-10-PCS; CPT 31622; 2021-05-22 14:00)
PROC: BB4BZZZ Ultrasonography of Pleura (ICD-10-PCS; CPT 31628; 2021-05-22 14:00)
PROC: (CPT 10021; 2021-05-22 14:00)
DX: C66.1 Malignant neoplasm of right ureter (principal); R91.8 Other nonspecific abnormal finding of lung field; R31.9 Hematuria, unspecified; I95.9 Hypotension, unspecified; I12.9 Hypertensive chronic kidney disease with stage 1 through stage 4 chronic kidney disease, or unspecified chronic kidney disease; N18.9 Chronic kidney disease, unspecified; F43.10 Post-traumatic stress disorder, unspecified; I48.20 Chronic atrial fibrillation, unspecified; K21.9 Gastro-esophageal reflux disease without esophagitis; F03.90 Unspecified dementia, unspecified severity, without behavioral disturbance, psychotic disturbance, mood disturbance, and anxiety; Z79.891 Long term (current) use of opiate analgesic; Z87.891 Personal history of nicotine dependence
CPT/HCPCS: 31628; 31652; 52354; 36415; 71045; 76000; 77011; 80048; 80500; 83880; 85025; 85610; 88305; 88307; 93005; 96365; G0378; J1100; J1956; J2250; J2405; J2704; J2710; J3010; J3490; J7030; J8597; Q9967

== ENCOUNTER → 2021-05-30 11:08 | Outpatient (BNVA) | payer OTHER, SELFPAY | PROVIDERS: PCP Family Medicine; Visit Provider Urology | DX: N28.89 Other specified disorders of kidney and ureter (principal) | CPT/HCPCS: 81003 ==

== ENCOUNTER 2021-06-06 13:30 | Outpatient (CLI) | payer OTHER, SELFPAY ==
--- NOTE | 2021-06-06 13:37 | XR_ITS ---
WS: [id number] CHEST 2 VIEWS HISTORY: Post biopsy COMPARISON: 05/22/2021 Lungs: Lobulated mass in the LEFT upper lobe measuring 6.5 x 6.8 cm. This mass has increased in size since the prior study. I believe the increased density along the lateral aspect of the mass is bleedi ng from a recent biopsy. There is also small left-sided pleural effusion approximately 20%. No midlin e shift. Cardiac size: Normal. Mediastinum/Aorta: Mild atherosclerosis aorta. Bones: Prior bilateral rotator cuff repairs. XR/XR chest 2V* [id number] IMPRESSION: 1. Small left-sided pneumothorax, approximately 20%. 2. Lobulated mass in the LEFT upper lobe. Adjacent increased density which is probably minimal adjacent post biopsy bleeding.
== END 2021-06-06 13:31 | disposition home or self-care (01) ==
PROVIDERS: PCP Family Medicine; Visit Provider Internal Medicine Critical Care Medicine
DX: R91.8 Other nonspecific abnormal finding of lung field (principal); J93.9 Pneumothorax, unspecified
CPT/HCPCS: 71046; 88307

== ENCOUNTER → 2021-07-31 15:57 | Outpatient (BNVA) | payer OTHER, SELFPAY | PROVIDERS: PCP Family Medicine; Visit Provider Nurse Practitioner Family | DX: C66.9 Malignant neoplasm of unspecified ureter (principal); R30.0 Dysuria | CPT/HCPCS: 81003; 87086 ==

== ENCOUNTER → 2021-08-13 15:15 | Outpatient (BNVA) | payer OTHER, SELFPAY | PROVIDERS: PCP Family Medicine; Visit Provider Urology | DX: R30.0 Dysuria (principal); R31.0 Gross hematuria | CPT/HCPCS: 81003 ==

== ENCOUNTER 2021-09-08 09:28 | Outpatient (CLI) | payer OTHER, SELFPAY ==
[2021-09-08 10:32] LABS: Glucose Urine UA Norm (Normal); Ketones Urine 1+ (Negative); Protein Urine 1+ (Negative); Urine Appearance Clear (CLEAR); Urine Color Dark Yellow (Yellow); pH Urine 5 (5-7)
[2021-09-08 10:33] LABS: Add Urine Microscopic? YES; Bacteria Urine 1+ /hpf; Bilirubin Urine 1+ (Negative); Blood Urine 2+ (Negative); Coarse Granular Casts Urine RARE /lpf; Leukocyte Esterase Urine Trace (Negative); Mucus Urine 2+ /hpf; Nitrate Urine Negative (Negative); RBC Urine 0-4 /hpf (0-2); Urobilinogen Urine 1 mg/dL (Negative); WBC Urine 25-40 /hpf (0-5)
[2021-09-08 10:34] LABS: Add Urine Culture? Yes
[2021-09-08 10:34] LABS: Alanine Aminotransferase 9 U/L (0-41); Alkaline Phosphatase 98 IU/L (40-130); Anion Gap 16.4 (5-19); Aspartate Amino Transferase 15 U/L (0-40); Blood Urea Nitrogen 31 mg/dL (8-23); Calcium 8.9 mg/dL (8.5-10.5); Carbon Dioxide 23 mmol/L (22-29); Chloride 104 mmol/L (98-107); Globulin 3.1 g/dL (1.3-4.6); Glucose 96 mg/dL (65-115); Osmolality Calculated 294 mOsm/kg (285-295); Potassium 4.4 mmol/L (3.5-5.1); Sodium 139 mmol/L (136-145); Total Bilirubin 0.5 mg/dL (0.15-1.2); Total Protein 7.1 g/dL (6.6-8.7)
== END 2021-09-08 09:29 | disposition home or self-care (01) ==
PROVIDERS: PCP Family Medicine; Visit Provider Chiropractor
DX: E11.9 Type 2 diabetes mellitus without complications (principal)
CPT/HCPCS: 36415; 80053; 81001

== ENCOUNTER 2021-09-17 14:49 | Outpatient (CLI) | payer OTHER, SELFPAY ==
[2021-09-17 16:53] LABS: Basophils % 0.4 %; Eosinophils # 0.1 10^3/uL (0.0-0.8); Eosinophils % 1.3 %; Hematocrit 38.7 % (42.0-52.0); Hemoglobin 12.7 g/dL (11.7-16.6); Lymphocytes # 1.7 10^3/uL (0.8-4.8); Lymphocytes % 18.8 %; Mean Corpuscular HGB Conc 32.8 g/dL (30.0-36.0); Mean Corpuscular Hemoglobin 30.5 pg (28.0-34.0); Monocytes # 0.9 10^3/uL (0.2-0.9); Monocytes % 9.6 %; Neutrophils # 6.22 10^3/uL (1.8-7.7); Neutrophils % 69.5 %; Nucleated Red Blood Cells % 0 %; Platelet Count 245 10^3/cmm (130-400); Red Blood Count 4.16 10^6/uL (4.1-5.3); Red Cell Distribution Width 15.3 % (12.1-15.1)
[2021-09-17 17:22] LABS: Alanine Aminotransferase 10 U/L (0-41); Albumin Level 3.9 g/dL (3.5-5.2); Alkaline Phosphatase 97 IU/L (40-130); Anion Gap 14.4 (5-19); Aspartate Amino Transferase 15 U/L (0-40); Blood Urea Nitrogen 26 mg/dL (8-23); Calcium 9.6 mg/dL (8.5-10.5); Carbon Dioxide 23 mmol/L (22-29); Chloride 104 mmol/L (98-107); Globulin 3.7 g/dL (1.3-4.6); Glucose 84 mg/dL (65-115); Osmolality Calculated 288 mOsm/kg (285-295); Potassium 4.4 mmol/L (3.5-5.1); Sodium 137 mmol/L (136-145); Total Bilirubin 0.3 mg/dL (0.15-1.2); Total Protein 7.6 g/dL (6.6-8.7)
--- NOTE | 2021-09-18 18:07 | ONC FU_ITS ---
Dr. Ashby Patient Follow-Up Note Patient: Mikhail Huerta Unit #: [id number]: [id number] Dicatated By: Tim Ashby M.D.Date of Visit:Sep 17, 2021 Onc Med Follow-up/Prog Note Chief Complaint: Laryngeal cancer/lung mass. History of Present Illness: This is an 86 year-old man with a known history of laryngeal cancer. He has an enlarging left lung mass and a right ureteral mass, suspicious for neoplasm In August [address] Srivastava with complaints of hoarseness and difficulty swallowing. 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 Biopsy showed moderate to severe dysplasia. Neck CT on 09/20/2018 showed no evidence of mass or lymphadenopathy, but chest CT at that time showed a new pulmonary nodule in the left upper lobe measuring 1.6 x 1.4 cm. He was referred to a assistant health educator for evaluation. Bronchoscopy apparently was nondiagnostic. In the course of an orthopedic procedure in October 2018 he was noted to have abnormal vocal cords. On 12/18/2018 he underwent bronchoscopy, esophagoscopy, and direct laryngoscopy's. 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 PET/CT on 01/07/2019 showed an FDG avid left upper lobe mass measuring 2.3 x 1.8 cm, suspicious for primary lung malignancy. There were no other areas of abnormal uptake. He then underwent definitive radiation to the larynx, completed on 03/24/2019 to a total dose of 6300 cGy administered in 28 fractions. His indicated that sometime following completion of the radiation he developed significant memory loss and cognitive dysfunction. In her words he lost it all , but it did show some gradual recovery. During follow-up there was evidence of continued enlargement of the left upper lobe lung mass. Per records he had then failed to show up for scheduled biopsies on multiple occasions. On 04/15/2020 when he presented to the emergency room with difficulty swallowing. He complained that things got stuck in his throat and that he was vomiting up everything he was eating. His evaluation concluded a barium swallow study which interestingly showed that he was able to swallow the Gastrografin mixture without too much difficulty. There was noted to be laryngeal penetration but no aspiration. The Gastrografin was swallowed without regurgitation. His neck CT showed no significant mass or adenopathy. CT scans of the chest, abdomen, and pelvis showed further enlargement of the left upper lobe lung nodule measuring 5.0 x 5.3 x 5.1 cm. There was no mediastinal or hilar adenopathy. There was noted to be severe hydronephrosis secondary to soft tissue mass in the mid to distal right ureter extending over a length of 2.5 cm. Multiple hypodense lesions in the liver were noted to be unchanged compared to her previous study from 12/24/2014. I had seen him initially on 04/18/2021. He was then referred to Dr. Aquino for lung biopsy and he was also seen by Dr. Graham in regard to the ureteral mass. On 05/22/2021 he underwent cystoscopy and right ureteroscopy and right retrograde ureteropyelogram followed by navigational bronchoscopy/EBUS. The ureteropyelogram showed obstruction of the right ureter at approximately 2 cm above the ureteral orifice. The ureteroscopy showed papillary mucosal changes suspicious for TCCA at the point of obstruction. 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 The bronchoscopy showed no evidence of endobronchial lesion. An FNA biopsy of the left upper lobe lung mass was obtained by navigational bronchoscopy. The EBUS showed mediastinal and hilar adenopathy. FNA biopsies were obtained from station 7 and 10 L lymph nodes. Pathology on the left upper lobe endobronchial biopsy showed rare clusters of atypical cells. FNA biopsies of the left upper lobe mass, station 7 lymph node, and station 10 L lymph node were all negative for malignancy. With those findings, he was recommended to see Dr. Foster for consideration of an open biopsy, but he then declined to have further evaluation. He had a follow-up with Dr. Graham on 08/29/2021. His other medical illnesses include COPD, atrial fibrillation, GERD, degenerative disease of the spine, and peripheral neuropathy. He has a history of memory loss/cognitive dysfunction and he also has posttraumatic stress disorder and associated anxiety/depression. He has a history of smoking 1 pack of cigarettes daily, though reportedly quit smoking many years ago. He is seen now for a follow-up visit. He says that he is up and running and feeling okay. He reports that his energy is about average. He is doing some light work. ECOG score is 1. Appetite has been good since he started taking megestrol. His weight is down a couple of pounds since April. He does not have fever or night sweats. He says his nose is constantly running. He recently has had some sore throat and he says it hurts to swallow. He describes his breathing as normal for me . He does not complain of cough, and he has not had chest pain. His acid reflux is adequately managed with medication. He has ongoing problems with constipation. He has no complaints with bladder function. For the past 2 days he has had pain across his lower back. He otherwise has not been having joint or bone pain. He does not complain of headache or dizziness. He has neuropathy in his hands and feet. Medications: Boost 1 bottle(s) Liquid Oral b.i.d., Docusate Sodium 2 Capsule (of 100 mg) Oral b.i.d., Donepezil HCl 1 Tablet (of 10 mg) Oral at bedtime, Fluticasone Propionate Suspension Nasal daily, HYDROcodone-Acetaminophen 1 Tablet (of 7.5-325 mg) Oral q 8 hours PRN, Meclizine HCl 0.5 Tablet (of 25 mg) Oral t.i.d., Metoprolol Tartrate 0.5 Tablet (of 100 mg) Oral b.i.d., Pantoprazole Sodium 2 Tablet (of 40 mg) Pack Oral b.i.d., Saline Nasal Manns Choice Solution Nasal daily, traZODone HCl 1 (100 mg) Tablet Oral at bedtime Allergies: Gabapentin, Kenalog, Omeprazole, and Topamax. Vital Signs: Performed on Sep 17, 2021 15:30 Height - 72.00 in Weight - 132.2 lbs (LOW) BSA - 1.79 sq.m BMI - 17.93 (LOW) Temperature - 97.8 F (LOW) Pulse - 60 /min Respiration - 18 /min BP - 118/81 mm(hg) O2 Sat - 99 % Pain - 0 Fatigue - 9 Physical Examination: Constitutional - He appears chronically ill, Eyes - Sclerae nonicteric. Conjunctivae clear, ENMT - No lesions noted in the oral cavity, Hematologic/Lymphatic - No cervical, clavicular, or axillary adenopathy, Respiratory - Lungs sound clear with diminished air movement bilaterally, Cardiovascular - Heart rhythm is irregular. There is no murmur, gallop, or rub noted, Abdomen - Soft. Liver and spleen are not enlarged. There is no abdominal mass or ascites noted and there is no inguinal adenopathy, Extremities - No edema, Neurologic - No focal neurologic deficits noted. Lab/Imaging: Test performed on Sep 17, 2021 16:07 Sodium 137 mmol/L Potassium 4.4 mmol/L Chloride 104 mmol/L CO2 23 mmol/L Anion Gap 14.4 BUN 26 mg/dL Creatinine 1.0 mg/dL Cr Clearance (Est) 46.6400 mL/min Glucose 84 mg/dL Osmolality - Calculated 288 mOsm/kg Calcium 9.6 mg/dL Protein, Total 7.6 g/dL Albumin 3.9 g/dL Globulin 3.7 g/dL Bilirubin, Total 0.3 mg/dL ALT (SGPT) 10 U/L AST (SGOT) 15 U/L Alkaline Phosphatase 97 IU/L WBC 9.0 10 3/uL RBC 4.16 10 6/uL HGB 12.7 g/dL HCT 38.7 % MCV 93.0 fl MCH 30.5 pg MCHC 32.8 g/dL RDW 15.3 % Platelet Count 245 10 3/cmm MPV 10.0 fL Neutrophils 6.22 10 3/uL Lymphocytes 1.7 10 3/uL Monocytes 0.9 10 3/uL Eosinophils 0.1 10 3/uL Basophils 0.0 10 3/uL Neutrophil % 69.5 % Lymphocyte % 18.8 % Monocyte % 9.6 % Eosinophil % 1.3 % Basophils % 0.4 % NRBC % 0 % Problem List: 1. 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 2. Enlarging left upper lobe lung mass consistent with primary lung neoplasm. 3. 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 He completed definitive radiation in March 2019. 4. He had subjective complaints of dysphagia and regurgitation, but there was no supportive evidence on a barium swallow study. 5. GERD. 6. COPD. 7. Atrial fibrillation. 8. Degenerative disease of the spine. 9. Memory loss/cognitive dysfunction. 10. Posttraumatic stress disorder. 11. Anxiety and depression. Problems Addressed with this Encounter and Plan: 1. 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 He underwent cystoscopy and right ureteroscopy on 05/22/2021. As yet he has not had any further treatment. He also has an enlarging mass in the upper lobe of the left lung, suspicious for second primary neoplasm. On 05/22/2021 he underwent bronchoscopy/EBUS with FNA biopsies of the left upper lobe mass and of station 7 and 10 L lymph nodes. There was no malignancy identified in any of the biopsies. He was recommended to see Dr. Foster for consideration of open biopsy, but he then declined any further evaluation. With documented muscle invasive urothelial cancer and with a high probability that the lung mass is also malignant, he will be scheduled for restaging CT scans of the chest, abdomen, and pelvis. I will see him to discuss further management when those results are available. 2. Has a history of having undergone definitive radiation for carcinoma in situ involving both right and left true vocal cords. Radiation was completed in March 2019. During follow-up there has been no evidence of recurrence. He has complaints of difficulty swallowing and regurgitation. The exact cause of this is unclear, as his recent barium swallow study so that he was able to swallow the Gastrografin mixture without difficulty. Nonetheless, he has had significant weight loss, and it still may be appropriate to place a PEG tube for nutritional support. Signed By: Tim Ashby M.D. <<Signature on File>>
== END 2021-09-17 14:50 | disposition home or self-care (01) ==
PROVIDERS: PCP Family Medicine; Visit Provider Internal Medicine Medical Oncology
DX: C66.1 Malignant neoplasm of right ureter (principal); C34.12 Malignant neoplasm of upper lobe, left bronchus or lung; N13.30 Unspecified hydronephrosis; R13.10 Dysphagia, unspecified; K21.9 Gastro-esophageal reflux disease without esophagitis; J44.9 Chronic obstructive pulmonary disease, unspecified; I48.91 Unspecified atrial fibrillation; M47.9 Spondylosis, unspecified; R41.3 Other amnesia; F43.10 Post-traumatic stress disorder, unspecified; F41.9 Anxiety disorder, unspecified; F32.9 Major depressive disorder, single episode, unspecified; Z85.89 Personal history of malignant neoplasm of other organs and systems; Z79.899 Other long term (current) drug therapy
CPT/HCPCS: 36415; 80053; 85025; 99214

== ENCOUNTER 2021-10-06 11:20 | Outpatient (CLI) | payer OTHER, SELFPAY ==
--- NOTE | 2021-10-06 11:33 | CT_ITS ---
WS: [id number] CT CHEST, ABDOMEN AND PELVIS WITH CONTRAST HISTORY: MALIGNANT NEOPLASM OF GLOTTIS/PULMONARY NODULE TECHNIQUE: Contiguous 5 mm axial imaging performed through the chest, abdomen and pelvis with IV cont rast, oral contrast has been provided. Coronal and sagittal reformats chest. Coronal and sagittal ref ormats through the abdomen and pelvis. All CT scans at [facility] use at least one of these d ose optimization techniques: automated exposure control; mA and/or kV adjustment per patient size (in cludes targeted exams where dose is matched to clinical indication); or iterative reconstruction. CONTRAST: Omnipaque 300; 95 mL IV. DLP: 1213.84 mGy.cm COMPARISON: 04/15/2021, 12/24/[address]: Continued increase in size of the cavitary mass centered in the LEFT upper lobe. Asymmetric soft tissue thickening with increasing central cavitation. Mass measures 5.0 x 5.7 cm. Mass extends over a length of 7.1 cm. Margins are lobulated. Mass extends along the superior major fissure and ansley ears to extend through the fissure or least displaces and obscures the fissure. Long-term stability o f a partially calcified nodule RIGHT lower lobe. No change since 09/20/2018. No new mass or nodules. M ild dependent changes at the lung bases. No mediastinal or hilar adenopathy. Mild atherosclerosis aor ta. Moderate enlargement the RIGHT heart chambers. No significant RIGHT heart strain. No retrocrural lymph nodes. Osteopenia with increase in the thoracic kyphosis. Abdomen CT: New since the prior examination are multiple low-attenuation nodules throughout the liver consistent with metastatic lesions. There are also several stable nodules within the liver which hav e been present over multiple prior studies consistent with complex cysts. Scattered new hypodensities in both lobes but greater distribution in the LEFT lobe. There is now thrombus within the LEFT carl l vein. This is probably tumor thrombus. The RIGHT portal vein is normal. Main portal vein is normal. Well-distended gallbladder with stones. Atrophic pancreas. Negative spleen. No adrenal mass. RIGHT r enal cysts and parapelvic cysts with a dilated renal pelvis similar to the prior study. The proximal ureter is tortuous and dilated. Change in caliber in the distal RIGHT ureter at the pelvic brim is ag ain identified. There is a soft tissue mass in the RIGHT pelvis obstructing the kidney. LEFT parapelv ic cysts with no ureteral obstruction. Atherosclerosis aorta. No aneurysm. SMA and celiac axis are pa tent. Stomach is nondistended and very difficult to evaluate. Very little fat the loops the GI t ract in the visceral organs. No adenopathy is appreciated. No GI tract obstruction. The appendix yosi ures 8 mm in diameter with no adjacent inflammation. The appendix is more prominent than on prior exa ms. No colon obstruction. Pelvic CT: Soft tissue mass in the RIGHT pelvis is obstructing the ureter. This soft tissue mass has increased in size since the prior study. Mass begins at the level of the RIGHT common iliac artery bi furcation and extends into the RIGHT pelvis. There is a larger soft tissue mass in the RIGHT pelvis w hich is lobulated invading into the urinary bladder. The largest component of this mass measures 4.9 x 3.9 cm. Mass invading into the urinary bladder and was not present on 04/15/2021. Mass extends over length of 6.2 cm and is invading the distal RIGHT ureter, RIGHT urinary bladder and the seminal vesic le and extends over the anterior rectum. Mass extends between the rectum and the bladder to the symph ysis pubis. Marked osteopenia. Large laminectomy defects at L4-5. Prior bone graft and LEFT pelvis. CT/CT chest abd pel w con* IMPRESSION: 1. Continued increase in size of the LEFT upper lobe mass which is now a cavit ritchie mass extending along the superior major fissure. Mass measures 5.0 x 5.7 x 7.1 cm in length. No new mass or adenopathy in the chest. 2. Interval development of metastatic lesions throughout the liver along with stable cysts and complex cysts over multiple years. 3. Continued progression of RIGHT hydronephrosis and hydroureter due to enlarg ing mass obstructing the distal RIGHT ureter. 4. Mass obstructing the distal RIGHT ureter has significantly increased in siz e and now measures 4.9 x 3.9 cm and extends over length of 6.2 cm. Mass begins in the distal RIGHT ureter and extends into the pelvis invading into the RIGHT urinary bladder, seminal vesicle and extends anterior to the rectum. 5. 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 Notified Tim Ashby MD at 10/06/2021 1:55 PM.
[2021-10-06] MEDS: iohexol 300 mg/mL 50 mL Btl PO (12:10)
[2021-10-06] MEDS: iohexol 300 mg/mL 100 mL Btl IV (12:45)
== END 2021-10-06 11:21 | disposition home or self-care (01) ==
PROVIDERS: PCP Family Medicine; Visit Provider Internal Medicine Medical Oncology
DX: R91.1 Solitary pulmonary nodule (principal); C32.0 Malignant neoplasm of glottis; I81 Portal vein thrombosis
CPT/HCPCS: 71260; 74177

== ENCOUNTER 2021-10-09 13:27 | Outpatient (CLI) | payer OTHER, SELFPAY ==
--- NOTE | 2021-10-12 13:37 | ONC FU_ITS ---
Dr. Ashby Patient Follow-Up Note Patient: Mikhail Huerta Unit #: [id number]: [id number] Dicatated By: Tim Ashby M.D.Date of Visit:Oct 09, 2021 Onc Med Follow-up/Prog Note Chief Complaint: Laryngeal cancer/lung mass. History of Present Illness: This is an 86 year-old man with a known history of laryngeal cancer. He has an enlarging left lung mass and a right ureteral mass, suspicious for neoplasm In August [address] Srivastaav with complaints of hoarseness and difficulty swallowing. 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 Biopsy showed moderate to severe dysplasia. Neck CT on 09/20/2018 showed no evidence of mass or lymphadenopathy, but chest CT at that time showed a new pulmonary nodule in the left upper lobe measuring 1.6 x 1.4 cm. He was referred to a epic application coordinator for evaluation. Bronchoscopy apparently was nondiagnostic. In the course of an orthopedic procedure in October 2018 he was noted to have abnormal vocal cords. On 12/18/2018 he underwent bronchoscopy, esophagoscopy, and direct laryngoscopy's. 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 PET/CT on 01/07/2019 showed an FDG avid left upper lobe mass measuring 2.3 x 1.8 cm, suspicious for primary lung malignancy. There were no other areas of abnormal uptake. He then underwent definitive radiation to the larynx, completed on 03/24/2019 to a total dose of 6300 cGy administered in 28 fractions. His indicated that sometime following completion of the radiation he developed significant memory loss and cognitive dysfunction. In her words he lost it all , but it did show some gradual recovery. During follow-up there was evidence of continued enlargement of the left upper lobe lung mass. Per records he had then failed to show up for scheduled biopsies on multiple occasions. On 04/15/2020 when he presented to the emergency room with difficulty swallowing. He complained that things got stuck in his throat and that he was vomiting up everything he was eating. His evaluation concluded a barium swallow study which interestingly showed that he was able to swallow the Gastrografin mixture without too much difficulty. There was noted to be laryngeal penetration but no aspiration. The Gastrografin was swallowed without regurgitation. His neck CT showed no significant mass or adenopathy. CT scans of the chest, abdomen, and pelvis showed further enlargement of the left upper lobe lung nodule measuring 5.0 x 5.3 x 5.1 cm. There was no mediastinal or hilar adenopathy. There was noted to be severe hydronephrosis secondary to soft tissue mass in the mid to distal right ureter extending over a length of 2.5 cm. Multiple hypodense lesions in the liver were noted to be unchanged compared to her previous study from 12/24/2014. I had seen him initially on 04/18/2021. He was then referred to Dr. Aquino for lung biopsy and he was also seen by Dr. Graham in regard to the ureteral mass. On 05/22/2021 he underwent cystoscopy and right ureteroscopy and right retrograde ureteropyelogram followed by navigational bronchoscopy/EBUS. The ureteropyelogram showed obstruction of the right ureter at approximately 2 cm above the ureteral orifice. The ureteroscopy showed papillary mucosal changes suspicious for TCCA at the point of obstruction. 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 The bronchoscopy showed no evidence of endobronchial lesion. An FNA biopsy of the left upper lobe lung mass was obtained by navigational bronchoscopy. The EBUS showed mediastinal and hilar adenopathy. FNA biopsies were obtained from station 7 and 10 L lymph nodes. Pathology on the left upper lobe endobronchial biopsy showed rare clusters of atypical cells. FNA biopsies of the left upper lobe mass, station 7 lymph node, and station 10 L lymph node were all negative for malignancy. With those findings, he was recommended to see Dr. Foster for consideration of an open biopsy, but he then declined to have further evaluation. He had a follow-up with Dr. Graham on 08/29/2021. His other medical illnesses include COPD, atrial fibrillation, GERD, degenerative disease of the spine, and peripheral neuropathy. He has a history of memory loss/cognitive dysfunction and he also has posttraumatic stress disorder and associated anxiety/depression. He has a history of smoking 1 pack of cigarettes daily, though reportedly quit smoking many years ago. INTERIM HISTORY: I had seen him for a follow-up visit on 09/17/2021. At that point he was still feeling reasonably good. He was scheduled for restaging CT scans of the chest, abdomen, and pelvis. Those studies were done on 10/06/2021. There was continued increase in the size of the left upper lobe mass measuring 5.0 x 5.7 x 7.1 cm. There was no new mass or adenopathy in the chest. However, there was interval development of metastatic lesions throughout the liver. There was continued progression of right hydronephrosis and hydroureter due to enlarging mass obstructing the distal right ureter, increased in size to 4.9 x 3.9 cm and extending over a length of 6.2 cm. There appeared to be extension into the pelvis and invasion into the right urinary bladder and seminal vesicle, and it appeared to extend anterior to the rectum. 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 Is seen for a follow-up visit. He has not been feeling good. He does not have much activity now. He is mostly in his chair or sleeping. ECOG score is 3. Appetite is still okay. He has not had fever. He does have some sweating. Reports having sore throat and some difficulty swallowing. He does not have a lot of coughing, but he is short of breath and he has been having some chest pain. He has nausea and he complains that his stomach painting. He has having difficulty with constipation. Bladder function is still okay. He is not having dysuria or hematuria. He has no significant joint or bone pain. He does have a headache and he sometimes has dizziness. He has numbness in his hands and feet. Medications: Boost 1 bottle(s) Liquid Oral b.i.d., Docusate Sodium 2 Capsule (of 100 mg) Oral b.i.d., Donepezil HCl 1 Tablet (of 10 mg) Oral at bedtime, Fluticasone Propionate Suspension Nasal daily, HYDROcodone-Acetaminophen 1 Tablet (of 7.5-325 mg) Oral q 8 hours PRN, Meclizine HCl 0.5 Tablet (of 25 mg) Oral t.i.d., Metoprolol Tartrate 0.5 Tablet (of 100 mg) Oral b.i.d., Pantoprazole Sodium 2 Tablet (of 40 mg) Pack Oral b.i.d., Saline Nasal [place] Solution Nasal daily, traZODone HCl 1 (100 mg) Tablet Oral at bedtime Allergies: Gabapentin, Kenalog, Omeprazole, and Topamax. Vital Signs: Performed on Oct 09, 2021 14:01 Height - 72.00 in Weight - 126.8 lbs (LOW) BSA - 1.76 sq.m BMI - 17.20 (LOW) Temperature - 98.0 F (LOW) Pulse - 63 /min Respiration - 16 /min BP - 105/68 mm(hg) O2 Sat - 97 % Pain - 0 Fatigue - 0 Physical Examination: Constitutional - He appears chronically ill. He is weak and shaky, Eyes - Sclerae nonicteric. Conjunctivae clear, ENMT - No lesions noted in the oral cavity, Hematologic/Lymphatic - No cervical, clavicular, or axillary adenopathy, Respiratory - Lungs sound clear with diminished air movement bilaterally, Cardiovascular - Heart rhythm is irregular. There is no murmur, gallop, or rub noted, Abdomen - Soft. There is tenderness in the mid and lower abdomen. Liver and spleen are not enlarged. There is no abdominal mass or ascites noted and there is no inguinal adenopathy, Extremities - No edema, Neurologic - No focal neurologic deficits noted. Lab/Imaging: Test performed on Sep 17, 2021 16:07 Sodium 137 mmol/L Potassium 4.4 mmol/L Chloride 104 mmol/L CO2 23 mmol/L Anion Gap 14.4 BUN 26 mg/dL Creatinine 1.0 mg/dL Cr Clearance (Est) 46.6400 mL/min Glucose 84 mg/dL Osmolality - Calculated 288 mOsm/kg Calcium 9.6 mg/dL Protein, Total 7.6 g/dL Albumin 3.9 g/dL Globulin 3.7 g/dL Bilirubin, Total 0.3 mg/dL ALT (SGPT) 10 U/L AST (SGOT) 15 U/L Alkaline Phosphatase 97 IU/L WBC 9.0 10 3/uL RBC 4.16 10 6/uL HGB 12.7 g/dL HCT 38.7 % MCV 93.0 fl MCH 30.5 pg MCHC 32.8 g/dL RDW 15.3 % Platelet Count 245 10 3/cmm MPV 10.0 fL Neutrophils 6.22 10 3/uL Lymphocytes 1.7 10 3/uL Monocytes 0.9 10 3/uL Eosinophils 0.1 10 3/uL Basophils 0.0 10 3/uL Neutrophil % 69.5 % Lymphocyte % 18.8 % Monocyte % 9.6 % Eosinophil % 1.3 % Basophils % 0.4 % NRBC % 0 % Problem List: 1. 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 2. Enlarging left upper lobe lung mass consistent with primary lung neoplasm. 3. 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 He completed definitive radiation in March 2019. 4. He had subjective complaints of dysphagia and regurgitation, but there was no supportive evidence on a barium swallow study. 5. GERD. 6. COPD. 7. Atrial fibrillation. 8. Degenerative disease of the spine. 9. Memory loss/cognitive dysfunction. 10. Posttraumatic stress disorder. 11. Anxiety and depression. Problems Addressed with this Encounter and Plan: 1. 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 He underwent cystoscopy and right ureteroscopy on 05/22/2021. As yet he has not had any further treatment. He also has an enlarging mass in the upper lobe of the left lung, suspicious for second primary neoplasm. On 05/22/2021 he underwent bronchoscopy/EBUS with FNA biopsies of the left upper lobe mass and of station 7 and 10 L lymph nodes. There was no malignancy identified in any of the biopsies. He was recommended to see Dr. Foster for consideration of open biopsy, but he then declined any further evaluation. His restaging CT scans on 10/06/2021 showed further enlargement of the left lung mass and the right ureteral mass and there was development of multiple metastatic lesions in their liver. His management is problematic, as I suspect that the lung lesion is his second primary malignancy rather than metastatic. In either case it does require biopsy/tissue diagnosis to direct his treatment. His management now is further complicated by the fact that he has had a significant decline in performance status. One option is to just have him start chemotherapy with cisplatin/gemcitabine, which could potentially treat both urothelial cancer and non-small cell lung cancer, but a lung biopsy would still be preferable, and to that end I am going to review the CT scan with the radiologist. 2. Has a history of having undergone definitive radiation for carcinoma in situ involving both right and left true vocal cords. Radiation was completed in March 2019. During follow-up there has been no evidence of recurrence. He has complaints of difficulty swallowing and regurgitation. The exact cause of this is unclear, as his recent barium swallow study so that he was able to swallow the Gastrografin mixture without difficulty. Nonetheless, he has had significant weight loss, and at some point it may be appropriate to place a PEG tube for nutritional support. Signed By: Tim Ashby M.D. <<Signature on File>>
[2021-10-20 14:17] LABS: Miscellaneous Test See Scanned Lab Rpt
== END 2021-10-09 13:28 | disposition home or self-care (01) ==
LOC: ONCMED 13:30
PROVIDERS: PCP Family Medicine; Visit Provider Internal Medicine Medical Oncology
DX: C68.8 Malignant neoplasm of overlapping sites of urinary organs (principal); D02.0 Carcinoma in situ of larynx; R91.8 Other nonspecific abnormal finding of lung field; K21.9 Gastro-esophageal reflux disease without esophagitis; J44.9 Chronic obstructive pulmonary disease, unspecified; I48.91 Unspecified atrial fibrillation; M47.9 Spondylosis, unspecified; F43.10 Post-traumatic stress disorder, unspecified; F41.9 Anxiety disorder, unspecified; F32.A Depression, unspecified; Z79.899 Other long term (current) drug therapy
CPT/HCPCS: 88342; 99214